=== PATIENT | female | born 1940 | race Caucasian/White ===

== ENCOUNTER 2017-01-21 14:59 | Emergency (ER) | payer MEDICARE, MEDICAID ==
--- NOTE | 2017-01-21 15:23 | ER Document Report ---
ED General - General Mode of Arrival: Ambulatory Information source: Patient TRAVEL OUTSIDE OF THE [place] IN LAST 30 DAYS: No - HPI Onset: Other Quality of pain: No pain Associated symptoms: None Recently seen / treated by doctor: Yes <SHUN BLACKWOOD - Last Filed: 01/21/17 20:09> <VIANCA ROMANO - Last Filed: 01/27/17 22:30> - General Stated Complaint: WEAKNESS Notes: Patient is a 76-year-old female that presents to the emergency department today with complaints of vertigo. 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 Patient is a very poor historian and has tangential speech along with a history of bipolar disorder so history is limited. (SHUN BLACKWOOD) - Related Data Allergies/Adverse Reactions: formaldehyde [Formaldehyde] Allergy (Mild, Verified 09/17/13 12:41) Hives cephalexin monohydrate [From Keflex] Allergy (Unknown, Verified 09/17/13 12:41) Hives haloperidol [Haloperidol] Allergy (Unknown, Verified 09/17/13 12:41) stiff neck albuterol [Albuterol] Allergy (Verified 09/17/13 12:41) trembling betaxolol HCl [From Betoptic S] Allergy (Verified 09/17/13 12:41) interferred with copd meds chlorpromazine HCl [From Thorazine] Allergy (Verified 09/17/13 12:41) jittery indomethacin [From Indocin] Allergy (Verified 09/17/13 12:41) meperidine HCl [From Demerol] Allergy (Verified 09/17/13 12:41) morphine [Morphine] Allergy (Verified 09/17/13 12:41) prednisone [Prednisone] Allergy (Verified 09/17/13 12:41) quinine [Quinine] Allergy (Verified 09/17/13 12:41) stiff neck 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 hydrocarbons Allergy (Uncoded 09/17/13 12:41) intensifies her senses thistle Allergy (Uncoded 09/17/13 12:41) itching Past Medical History - General Information source: Patient, [facility] Records - Social History Smoking Status: Never Smoker Cigarette use (# per day): No Frequency of alcohol use: None Drug Abuse: None Lives with: Family Family History: Reviewed & Not Pertinent - Past Medical History Cardiac Medical History: Reports: Hx Hypertension Pulmonary Medical History: Reports: Hx COPD Endocrine Medical History: Reports: Hx Diabetes Mellitus Type 2, Hx Hypothyroidism Musculoskeltal Medical History: Reports Hx Arthritis Psychiatric Medical History: Reports: Hx Bipolar Disorder, Hx Depression Past Surgical History: Reports: Hx Appendectomy, Hx Cholecystectomy, Hx Herniorrhaphy - UMBILICAL, Hx Hysterectomy - Immunizations Hx Diphtheria, Pertussis, Tetanus Vaccination: Yes Hx Pneumococcal Vaccination: 11/15/08 <SHUN BLACKWOOD - Last Filed: 01/21/17 20:09> Review of Systems - Review of Systems Constitutional: See HPI, Weakness, Other - "vertigo" EENT: No symptoms reported Cardiovascular: See HPI, Other - low blood pressure Respiratory: No symptoms reported Gastrointestinal: No symptoms reported Genitourinary: No symptoms reported Female Genitourinary: No symptoms reported Musculoskeletal: No symptoms reported Skin: No symptoms reported Hematologic/Lymphatic: No symptoms reported Neurological/Psychological: No symptoms reported -: Yes All other systems reviewed and negative <SHUN BLACKWOOD - Last Filed: 01/21/17 20:09> Physical Exam - General General appearance: Appears well, Alert In distress: None - HEENT Head: Normocephalic, Atraumatic Eyes: Normal Conjunctiva: Normal Extraocular movements intact: Yes - Respiratory Respiratory status: No respiratory distress Chest status: Nontender Breath sounds: Normal Chest palpation: Normal - Cardiovascular Rhythm: Regular Heart sounds: Normal auscultation Murmur: No - Abdominal Inspection: Normal Distension: No distension Bowel sounds: Normal Tenderness: Nontender - Extremities General upper extremity: Normal inspection, Normal ROM. No: Edema General lower extremity: Normal inspection, Normal ROM. No: Edema - Neurological Neuro grossly intact: Yes Cognition: Normal Orientation: AAOx4 Speech: Normal - Psychological Associated symptoms: Other - intermittent aggressive behaviors including profanity and throwing objects at staff, no suicidal or homicidal ideation - Skin Skin Temperature: Warm Skin Moisture: Dry Skin Color: Normal <SHUN BLACKWOOD - Last Filed: 01/21/17 20:09> Course - Laboratory Result Diagrams: 01/21/17 17:41 01/21/17 17:41 <SHUN BLACKWOOD - Last Filed: 01/21/17 20:09> - Laboratory Result Diagrams: 01/21/17 17:41 01/21/17 17:41 <VIANCA ROMANO - Last Filed: 01/27/17 22:30> - Re-evaluation Re-evalutation: 01/21/17 21:46 I personally performed the services described in the documentation, reviewed and edited the documentation which was dictated to my scribe in my presence, and it accurately records my words and actions. Patient presents the emergency department with no complaints. Chart states that patient has refused multiple visits physician reading assistant for Dr. Veliz sent her over here for evaluation and states that she asked them for vertigo medication and they said that they're not the kind of Dr. the gives vertigo medication. She is a DNR they were concerned about low pulse ox patient is 98% on 2 L in no acute shortness of breath. She has a history of bipolar and is very difficult to reason with that time she did become agitated frustrated even throw things at the staff. We kept her for a prolonged period of time his laboratory evaluation which was nonacute. No evidence of pneumonia. Hypoxia currently. No acute clinical concerns for pulmonary embolus. Patient is stable is not short of breath be discharged for primary care physician in one to 2 days and discussed reasons for ED return sooner. has mildly elevated BNP but no overt failure on chest x-ray no Rales on examination or peripheral edema. 01/21/17 21:50 01/21/17 21:51 (VIANCA ROMANO) - Vital Signs Vital signs: Temp Pulse Resp BP Pulse Ox 97.9 F 65 25 H 120/77 99 01/21/17 21:32 01/21/17 15:10 01/21/17 22:00 01/21/17 20:45 01/21/17 22:05 - Laboratory Laboratory results interpreted by me: 01/21/17 01/21/17 01/21/17 17:41 17:41 17:41 RBC 3.65 L Hgb 11.2 L Hct 34.1 L Potassium 5.2 H BUN 35 H Creatinine 1.27 H Est GFR ( Amer) 50 L Est GFR (Non-Af Amer) 41 L NT-Pro-B Natriuret Pep 3800 H Discharge <SHUN BLACKWOOD - Last Filed: 01/21/17 20:09> <VIANCA ROMANO - Last Filed: 01/27/17 22:30> - Discharge Clinical Impression: Weakness, Elevated brain natriuretic peptide (BNP) level Condition: Stable Disposition: HOME, SELF-CARE Additional Instructions: Weakness We did not find a definite cause for your weakness. This may require further medical tests. Weakness can be caused by infection, physical exhaustion , rapid weight loss, dehydration, or medicine side effects. Diseases of the muscles, heart, nerves, and blood vessels can make you weak. Sometimes the problem is simply depression or lack of exercise. You should get plenty of rest. Unless the doctor tells you otherwise, it's usually best to add short periods of regular mild exercise. Eat a nutritious diet with multiple small, low-sugar meals. If symptoms continue, additional medical evaluation will be necessary. Be sure to follow up as instructed. If you become very dizzy, nauseated, or feel like you're going to faint, lie down right away. Wait until the symptoms have passed before you get up again. Stand up slowly. Call the doctor or return if you develop chest pain, abdominal pain, severe headache, irregular heartbeat or very fast pulse, confusion, vision problems, fever, muscular pain, or any other new symptom. Prescriptions: Furosemide [Lasix] 40 mg PO DAILY #6 tablet Referrals: AGUSTO NYE MD [Primary Care Provider] - Follow up tomorrow Scribe Documentation - Scribe Written by Vernon:: Vernon Esquivel, 01/21/20172007 acting as scribe for :: Romario <SHUN BLACKWOOD - Last Filed: 01/21/17 20:09>
[2017-01-21 17:36] LABS: APPEARANCE,URINE CLEAR; BILIRUBIN,URINE NEGATIVE (NEGATIVE); GLUCOSE, URINE NEGATIVE (NEGATIVE); KETONES,URINE NEGATIVE (NEGATIVE); LEUKOCYTE ESTERASE,URINE NEGATIVE (NEGATIVE); NITRITE,URINE NEGATIVE (NEGATIVE); PROTEIN,URINE NEGATIVE (NEGATIVE); UROBILINOGEN,URINE NEGATIVE mg/dL (<2.0)
[2017-01-21 18:25] LABS: ABSOLUTE EOSINOPHILS # (AUTO) 0.3 10^3/uL (0.0-0.6); ABSOLUTE LYMPHOCYTES (AUTO) 2.1 10^3/uL (0.5-4.7); ABSOLUTE MONOCYTES (AUTO) 0.6 10^3/uL (0.1-1.4); ABSOLUTE NEUT (AUTO) 4.1 10^3/uL (1.7-8.2); BASOPHILS % (AUTO) 0.7 % (0-2); HEMATOCRIT 34.1 % (36.0-47.0); HEMOGLOBIN 11.2 g/dL (12.0-15.5); HGB HCT DIFFERENCE -0.5; LYMPHOCYTES % (AUTO) 29.4 % (13-45); MEAN CORPUSCULAR HEMOGLOBIN 30.6 pg (27.0-33.4); MEAN CORPUSCULAR HGB CONC 32.7 g/dL (32.0-36.0); MEAN CORPUSCULAR VOLUME 94 fl (80-97); MONOCYTES % (AUTO) 8.5 % (3-13); RED BLOOD COUNT 3.65 10^6/uL (3.72-5.28); RED CELL DISTRIBUTION WIDTH 12.5 % (11.5-14.0); SEGMENTED NEUTROPHILS % (AUTO) 57.4 % (42-78); WHITE BLOOD COUNT 7.2 10^3/uL (4.0-10.5)
[2017-01-21 18:40] LABS: ANION GAP 10 (5-19); BLOOD UREA NITROGEN 35 mg/dL (7-20); CALCIUM 9.3 mg/dL (8.4-10.2); CARBON DIOXIDE 27 mmol/L (22-30); CHLORIDE 103 mmol/L (98-107); CREATININE RESULT 1.27 mg/dL (0.52-1.25); GLUCOSE 80 mg/dL (75-110); POTASSIUM 5.2 mmol/L (3.6-5.0); SODIUM 139.9 mmol/L (137-145)
[2017-01-21 18:56] LABS: TROPONIN I 0.098 ng/mL
--- NOTE | 2017-01-21 20:02 | EKG REPORT ---
SEVERITY:- NORMAL ECG - SINUS RHYTHM : Confirmed by: Aliyah Mendoza 21-Jan-2017 20:01:37
[2017-01-21] MEDS ORDERED: LORAZEPAM INJ 2 MG/1 ML VIAL ONE (20:24)
[2017-01-21 22:03] VITALS: BP 120/77
== END 2017-01-21 22:35 | disposition home or self-care (01) ==
LOC: ER 14:59
DX: R53.1 Weakness (principal); R79.89 Other specified abnormal findings of blood chemistry; I95.9 Hypotension, unspecified; R42 Dizziness and giddiness; F31.9 Bipolar disorder, unspecified; R45.6 Violent behavior; E11.9 Type 2 diabetes mellitus without complications; I10 Essential (primary) hypertension; J44.9 Chronic obstructive pulmonary disease, unspecified; Z88.1 Allergy status to other antibiotic agents; Z88.8 Allergy status to other drugs, medicaments and biological substances; Z88.5 Allergy status to narcotic agent; Z91.048 Other nonmedicinal substance allergy status; Z66 Do not resuscitate
CPT/HCPCS: 93005; 99285; 96374; 36415; 85025; 80048; 81001; 84484; 83880; 71010; 93010; J2060

== ENCOUNTER 2017-02-04 18:16 | Inpatient (IN) | payer MEDICARE, MEDICAID ==
--- NOTE | 2017-02-04 19:04 | ER Document Report ---
ED General - General Time seen by provider: 18:57 Mode of Arrival: Medic Information source: Patient, Emergency Med Personnel TRAVEL OUTSIDE OF THE [place] IN LAST 30 DAYS: No - HPI Onset: Other - see HPI note Associated symptoms: Shortness of breath <JEFFERSON PAREDES - Last Filed: 02/04/17 19:06> <MO CARNEY - Last Filed: 02/05/17 01:03> <MONY CASTANEDA - Last Filed: 02/05/17 07:43> - General Chief Complaint: Shortness Of Breath Stated Complaint: DIFFICULTY BREATHING Notes: Patient is a 76 year old female presenting to the emergency department via EMS for syncope and respiratory distress. EMS reports that patient was found unconscious outside [facility] with a O2 saturation of 66%. Patient was placed on oxygen and is conscious in the room. Patient states that she decided to be "mute" because people have told her that she talks too much and they tell her to "shut up." Patient denies falling and states she is aware. Patient complains that the nurse at the facility switched her glasses; she states the glasses she has are not hers because they are not her frames. Patient uses oxygen at [facility] as needed. Patient's PCP is Dr. Ney. Patient has a history of bipolar disorder, depression, diabetes mellitus, hypertension, arthritis, COPD, and hypothyroidism. (JEFFERSON PAREDES) - Related Data Allergies/Adverse Reactions: formaldehyde [Formaldehyde] Allergy (Mild, Verified 09/17/13 12:41) Hives cephalexin monohydrate [From Keflex] Allergy (Unknown, Verified 09/17/13 12:41) Hives haloperidol [Haloperidol] Allergy (Unknown, Verified 09/17/13 12:41) stiff neck albuterol [Albuterol] Allergy (Verified 09/17/13 12:41) trembling betaxolol HCl [From Betoptic S] Allergy (Verified 09/17/13 12:41) interferred with copd meds chlorpromazine HCl [From Thorazine] Allergy (Verified 09/17/13 12:41) jittery indomethacin [From Indocin] Allergy (Verified 09/17/13 12:41) meperidine HCl [From Demerol] Allergy (Verified 09/17/13 12:41) morphine [Morphine] Allergy (Verified 09/17/13 12:41) prednisone [Prednisone] Allergy (Verified 09/17/13 12:41) quinine [Quinine] Allergy (Verified 09/17/13 12:41) stiff neck 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 hydrocarbons Allergy (Uncoded 09/17/13 12:41) intensifies her senses thistle Allergy (Uncoded 09/17/13 12:41) itching Past Medical History - General Information source: Patient, Emergency Med Personnel, Outside Facility Records - Social History Smoking Status: Smoker,Current Status Unk Family History: None - Past Medical History Cardiac Medical History: Reports: Hx Hypertension Pulmonary Medical History: Reports: Hx COPD Endocrine Medical History: Reports: Hx Diabetes Mellitus Type 2, Hx Hypothyroidism Musculoskeltal Medical History: Reports Hx Arthritis Psychiatric Medical History: Reports: Hx Bipolar Disorder, Hx Depression Past Surgical History: Reports: Hx Appendectomy, Hx Cholecystectomy, Hx Herniorrhaphy - UMBILICAL, Hx Hysterectomy - Immunizations Hx Diphtheria, Pertussis, Tetanus Vaccination: Yes Hx Pneumococcal Vaccination: 11/15/08 <JEFFERSON PAREDES - Last Filed: 02/04/17 19:06> Review of Systems - Review of Systems Constitutional: No symptoms reported EENT: No symptoms reported Cardiovascular: No symptoms reported Respiratory: See HPI Gastrointestinal: No symptoms reported Genitourinary: No symptoms reported Female Genitourinary: No symptoms reported Musculoskeletal: No symptoms reported Skin: No symptoms reported Hematologic/Lymphatic: No symptoms reported Neurological/Psychological: See HPI -: Yes All other systems reviewed and negative <JEFFERSON PAREDES - Last Filed: 02/04/17 19:06> Physical Exam <JEFFERSON PAREDES - Last Filed: 02/04/17 19:06> <MO CARNEY F - Last Filed: 02/05/17 01:03> <MONY CASTANEDA - Last Filed: 02/05/17 07:43> - Vital signs Vitals: Temp Resp Pulse Ox 98.6 F 12 96 02/04/17 18:43 02/04/17 18:43 02/04/17 18:43 - Notes Notes: GENERAL: Well-appearing, well-nourished and in no acute distress. Appears oriented but refuses to answer some questions. HEAD: Atraumatic, normocephalic EYES: Pupils equal round and reactive to light, extraocular movements intact, sclera anicteric, no conjunctival injection or discharge ENT: Nares patent, oropharynx clear without exudates. Moist mucous membranes. NECK: Normal range of motion, supple, no carotid bruits LUNGS: Decreased breath sounds bilaterally with wheezes. HEART: Normal S1S2, Regular rate and rhythm without murmurs, Equal peripheral pulses ABDOMEN: Soft, non-tender, No appreciable mass EXTREMITIES: Normal range of motion, no calf tenderness, Negative Homans, no edema NEUROLOGICAL: GCS 15, Cranial nerves II-XII intact. Normal speech without aphasia, No Pronator Drift, 5/5 RUE strength, 5/5 RLE strength, 5/5 LUE strength , 5/5 LLE strength, No cerebellar abnormalities including normal finger-nose testing PSYCH: Agitated, normal affect, believes people are being nitpicky towards, some paranoia. SKIN: Warm, Dry, no cyanosis, Cap refill < 2 sec (JEFFERSON PAREDES) Course <JEFFERSON PAREDES - Last Filed: 02/04/17 19:06> - Laboratory Result Diagrams: 02/04/17 18:45 02/04/17 20:20 - EKG Interpretation by Me EKG shows normal: Sinus rhythm, [place], Intervals, QRS Complexes, ST-T Waves Rate: Normal - 83 - Consults Dr. Perry Time consulted: 00:55 <MO CARNEY - Last Filed: 02/05/17 01:03> - Laboratory Result Diagrams: 02/04/17 18:45 02/04/17 20:20 <MONY CASTANEDA - Last Filed: 02/05/17 07:43> - Re-evaluation Re-evalutation: 02/05/17 01:58 Patient's lung cross are still very tight wheezing. Patient was checked out to me by Dr. Carney pending repeat troponin. Repeat troponin is back. It is not much change from the previous one. I did review her previous records and previous visits. Her troponins actually in line with where it typically is on her previous visits. She has no chest pain. I do not think it's cardiac related. She may have some strain from the previous hypoxemia but I do not think she is having an [facility]. I'm awaiting to hear back from the hospitalist. 02/05/17 04:47 I again reevaluated the patient. Her lung cross are still wheezing and tight. She still requires omental oxygen. On 3 L she is partially 9394%. Without oxygen her saturations quickly dipped into the 80s. She is easily arousable. She is her usual awake and agitated self. We are still waiting to hear back from the hospitalist to get the patient admitted. 02/05/17 07:[address] Alexander, hospitalist, who agrees to admit the patient. Patient has remained stable on supplemental oxygen. Dictation of this chart was performed using voice recognition software; therefore, there may be some unintended grammatical errors. 02/05/17 07:42 (MONY CASTANEDA) - Vital Signs Vital signs: Temp Pulse Resp BP Pulse Ox 98.6 F 13 139/55 H 94 02/04/17 18:43 02/05/17 04:01 02/05/17 04:00 02/05/17 04:01 - Laboratory Laboratory results interpreted by me: 02/04/17 02/04/17 02/04/17 18:45 19:50 20:20 WBC 12.5 H Absolute Neutrophils 9.3 H Carbonic Acid ABG pCO2 ABG pO2 ABG HCO3 ABG Total CO2 ABG O2 Saturation Chloride 92 L Carbon Dioxide 37 H BUN 30 H Est GFR (Non-Af Amer) 52 L Glucose 145 H NT-Pro-B Natriuret Pep Ur Leukocyte Esterase TRACE H 02/04/17 02/04/17 20:20 20:50 WBC Absolute Neutrophils Carbonic Acid 2.15 H ABG pCO2 71.5 H* ABG pO2 41.5 L ABG HCO3 38.9 H ABG Total CO2 41.0 H ABG O2 Saturation 72.5 L Chloride Carbon Dioxide BUN Est GFR (Non-Af Amer) Glucose NT-Pro-B Natriuret Pep 4010 H Ur Leukocyte Esterase - EKG Interpretation by Me Additional EKG results interpreted by me: 02/05/17 03:24 EKG is reviewed and interpreted by me. EKG shows normal sinus rhythm with rate of [address] segment elevation or depression. No ischemic T wave inversions. ND interval, QRS duration, QTC intervals are within normal range. Old EKG for comparison is from 02/04/2017. (MONY CASTANEDA) - Consults Dr. Perry Reason for consultation: 02/05/17 01:[address] Perry regarding admission. Patient has hypoxia with some chronic respiratory issues. Her CT scan did not show pulmonary embolus. Her prior troponin was 0.098 and tonight 0.12. She denies any chest pain but we will repeat another troponin and decide about admission at that point here versus transfer based on her continued status and repeat troponin. She gets tremulous with albuterol so she will be receiving Xopenex. (MO CARNEY) Discharge <JEFFERSON PAREDES - Last Filed: 02/04/17 19:06> <MO CARNEY - Last Filed: 02/05/17 01:03> - Discharge Admitting Provider: Hospitalist Unit Admitted: Telemetry <MONY CASTANEDA - Last Filed: 02/05/17 07:43> - Discharge Clinical Impression: Hypoxia, Obstructive chronic bronchitis with exacerbation Syncope Qualifiers: Syncope type: unspecified Qualified Code(s): R55 - Syncope and collapse Condition: Fair Disposition: ADMITTED INPATIENT Referrals: AGUSTO NEY MD [Primary Care Provider] - Follow up as needed Scribe Attestation: 02/05/17 01:04 I personally performed the services described in the documentation, reviewed and edited the documentation which was dictated to the scribe in my presence, and it accurately records my words and actions. (MO CARNEY) Scribe Documentation - Scribe Written by Scrpiyush:: Jefferson Paredes 02/04/17 19:10 acting as scribe for :: Angelika <JEFFERSON PAREDES - Last Filed: 02/04/17 19:06>
[2017-02-04 19:32] LABS: ABSOLUTE BASOPHILS # (AUTO) 0.1 10^3/uL (0.0-0.2); ABSOLUTE EOSINOPHILS # (AUTO) 0.3 10^3/uL (0.0-0.6); ABSOLUTE MONOCYTES (AUTO) 0.7 10^3/uL (0.1-1.4); ABSOLUTE NEUT (AUTO) 9.3 10^3/uL (1.7-8.2); BASOPHILS % (AUTO) 0.6 % (0-2); EOSINOPHILS % (AUTO) 2.4 % (0-6); HEMATOCRIT 42.1 % (36.0-47.0); HEMOGLOBIN 14.1 g/dL (12.0-15.5); HGB HCT DIFFERENCE 0.2; LYMPHOCYTES % (AUTO) 16.4 % (13-45); MEAN CORPUSCULAR HEMOGLOBIN 30.7 pg (27.0-33.4); MEAN CORPUSCULAR HGB CONC 33.4 g/dL (32.0-36.0); MEAN CORPUSCULAR VOLUME 92 fl (80-97); MONOCYTES % (AUTO) 5.7 % (3-13); RED BLOOD COUNT 4.59 10^6/uL (3.72-5.28); RED CELL DISTRIBUTION WIDTH 13.2 % (11.5-14.0); SEGMENTED NEUTROPHILS % (AUTO) 74.9 % (42-78); WHITE BLOOD COUNT 12.5 10^3/uL (4.0-10.5)
[2017-02-04 20:25] LABS: APPEARANCE,URINE CLEAR; BILIRUBIN,URINE NEGATIVE (NEGATIVE); GLUCOSE, URINE NEGATIVE (NEGATIVE); KETONES,URINE NEGATIVE (NEGATIVE); LEUKOCYTE ESTERASE,URINE TRACE (NEGATIVE); NITRITE,URINE NEGATIVE (NEGATIVE); PROTEIN,URINE NEGATIVE (NEGATIVE); URINE SPECIFIC GRAVITY 1.006; UROBILINOGEN,URINE NEGATIVE mg/dL (<2.0)
[2017-02-04 20:51] LABS: ALANINE AMINOTRANSFERASE 36 U/L (9-52); ALBUMIN 4.3 g/dL (3.5-5.0); ALKALINE PHOSPHATASE 88 U/L (38-126); ANION GAP 12 (5-19); ASPARTATE AMINO TRANSFERASE 24 U/L (14-36); BILIRUBIN,DIRECT 0.3 mg/dL (0.0-0.4); BILIRUBIN,TOTAL 0.6 mg/dL (0.2-1.3); BLOOD UREA NITROGEN 30 mg/dL (7-20); CALCIUM 9.9 mg/dL (8.4-10.2); CARBON DIOXIDE 37 mmol/L (22-30); CHLORIDE 92 mmol/L (98-107); CREATININE RESULT 1.03 mg/dL (0.52-1.25); GLUCOSE 145 mg/dL (75-110); POTASSIUM 4.6 mmol/L (3.6-5.0); SODIUM 141.4 mmol/L (137-145); TOTAL PROTEIN 7.3 g/dL (6.3-8.2)
[2017-02-04 21:05] LABS: TROPONIN I 0.123 ng/mL
[2017-02-04 21:24] LABS: ARTERIAL BLOOD BASE EXCESS 10.3 mmol/L; ARTERIAL BLOOD O2 SATURATION 72.5 % (94-98)
[2017-02-05] MEDS ORDERED: LEVALBUTEROL HCL NEB 1.25 MG/3 ML AMPUL NEB ONE ×2 (00:41→01:57)
[2017-02-05] MEDS ORDERED: METHYLPREDNISOLONE INJ 125 MG/2 ML SDV IV ONE (01:58)
[2017-02-05] MEDS: MAGNESIUM SULFATE/D5W 100 ML IV SCH ×2 (02:45→03:47)
--- NOTE | 2017-02-05 07:07 | EKG REPORT ---
SEVERITY:- NORMAL ECG - SINUS RHYTHM : Confirmed by: Galen Mendoza MD 05-Feb-2017 07:07:26
--- NOTE | 2017-02-05 07:13 | EKG REPORT ---
SEVERITY:- NORMAL ECG - SINUS RHYTHM POOR R PROGRESSION ANTERIOR PRECORDIAL LEADS. : Confirmed by: Galen Mendoza MD 05-Feb-2017 07:13:22
[2017-02-05 11:07] LABS: ABSOLUTE LYMPHOCYTES (AUTO) 0.4 10^3/uL (0.5-4.7); ABSOLUTE NEUT (AUTO) 5.8 10^3/uL (1.7-8.2); BASOPHILS % (AUTO) 0.3 % (0-2); EOSINOPHILS % (AUTO) 0.1 % (0-6); HEMATOCRIT 36.8 % (36.0-47.0); HEMOGLOBIN 12.2 g/dL (12.0-15.5); HGB HCT DIFFERENCE -0.2; LYMPHOCYTES % (AUTO) 6.5 % (13-45); MEAN CORPUSCULAR HEMOGLOBIN 30.8 pg (27.0-33.4); MEAN CORPUSCULAR HGB CONC 33.1 g/dL (32.0-36.0); MEAN CORPUSCULAR VOLUME 93 fl (80-97); MONOCYTES % (AUTO) 0.5 % (3-13); RED BLOOD COUNT 3.96 10^6/uL (3.72-5.28); RED CELL DISTRIBUTION WIDTH 12.7 % (11.5-14.0); SEGMENTED NEUTROPHILS % (AUTO) 92.6 % (42-78); WHITE BLOOD COUNT 6.3 10^3/uL (4.0-10.5)
[2017-02-05 11:20] LABS: VENOUS BLOOD BASE EXCESS 11.3 mmol/L; VENOUS BLOOD HCO3 39.4 mmol/L (20-32); VENOUS BLOOD PH 7.37 (7.30-7.42)
[2017-02-05 11:26] LABS: ANION GAP 16 (5-19); BLOOD UREA NITROGEN 26 mg/dL (7-20); CALCIUM 9.5 mg/dL (8.4-10.2); CARBON DIOXIDE 34 mmol/L (22-30); CHLORIDE 93 mmol/L (98-107); CREATININE RESULT 0.94 mg/dL (0.52-1.25); GLUCOSE 196 mg/dL (75-110); MAGNESIUM 2.7 mg/dL (1.6-2.3); POTASSIUM 5.1 mmol/L (3.6-5.0); SODIUM 143.1 mmol/L (137-145)
[2017-02-05 11:27] LABS: VENOUS BLOOD PCO2 69.1 mmHg (35-63)
[2017-02-05] MEDS ORDERED: MECLIZINE HCL 25 MG TABLET PO PRN (11:31)
[2017-02-05] MEDS ORDERED: VITAMIN D3 PO SCH (12:00)
[2017-02-05] MEDS ORDERED: CALCIUM CARBONATE PO SCH (12:00)
[2017-02-05] MEDS ORDERED: LEVOTHYROXINE SODIUM 0.05 MG TABLET PO ONE (13:00)
[2017-02-05] MEDS ORDERED: ASPIRIN 81 MG TABLET, ENT COATED PO ONE (13:00)
[2017-02-05] MEDS ORDERED: CARVEDILOL 6.25 MG TABLET PO ONE (13:00)
[2017-02-05] MEDS ORDERED: LISINOPRIL 10 MG TABLET PO ONE (13:00)
[2017-02-05] MEDS ORDERED: CETIRIZINE 10 MG TABLET PO ONE (13:00)
[2017-02-05] MEDS ORDERED: PRENATAL VITAMIN W-O CA NO5/FE FUMARATE/FA CAPSULE PO ONE (13:00)
[2017-02-05] MEDS ORDERED: OLANZAPINE INJ/PF 10 MG SDV IM ONE (13:30)
[2017-02-05] MEDS: ALPRAZOLAM 0.25 MG TABLET PO PRN (16:06)
[2017-02-05] MEDS ORDERED: LEVALBUTEROL HCL NEB 1.25 MG/3 ML AMPUL NEB PRN (16:58)
--- NOTE | 2017-02-05 17:04 | PDOC H&P ---
History of Present Illness Admission Date/PCP: 02/05/17 09:46 AGUSTO NYE MD Patient complains of: Shortness of breath History of Present Illness: Ms. Escobar is a 76 year old female presenting to the emergency department via EMS for syncope and respiratory distress. EMS reports that patient was found unconscious outside [facility] with a O2 saturation of 66%. Patient was placed on oxygen and is conscious in the room. Patient stated that she decided to be "mute" because people have told her that she talks too much and they tell her to "shut up." Patient denies falling and states she is aware. Patient complains that the nurse at the facility switched her glasses; she states the glasses she has are not hers because they are not her frames. Patient uses oxygen at [facility] as needed. Patient's PCP is Dr. Nye. Patient has a history of hypercapnic respiratory failure, bipolar disorder, depression, diabetes mellitus, hypertension, arthritis, COPD, and hypothyroidism. Patient was referred to the hospitalist for admission and management. Upon my evaluation the patient was found to be obtunded. Given the elevation in PCO2 stat labs and blood gas was obtained. Upon reevaluation the patient was found to be delusional and history was unable to be fully obtained. This appears to be the patient's baseline. Selected Entries 02/05/17 05:59 Respiratory 26 H Rate 02/04/17 02/04/17 02/04/17 18:45 20:20 20:50 WBC 12.5 H ABG pCO2 71.5 H* ABG pO2 41.5 L Carbon Dioxide 37 H Past Medical History Cardiac Medical History: Reports: Hypertension Pulmonary Medical History: Reports: Chronic Obstructive Pulmonary Disease (COPD) Endocrine Medical History: Reports: Diabetes Mellitus Type 2, Hypothyroidism Musculoskeltal Medical History: Reports: Arthritis Psychiatric Medical History: Reports: Bipolar Disorder - With psychosis, Depression Hematology: Reports: Heparin Induced Thrombocytopenia Past Surgical History Past Surgical History: Reports: Appendectomy, Cholecystectomy, Herniorrhaphy - UMBILICAL, Hysterectomy Social History Information Source: Patient Occupation: Retired lives at the [facility] in [place] Lives with: Other - Assisted living Smoking Status: Current Every Day Smoker Cigarettes Packs Per Day: 0.3 Number of Years Smokin Frequency of Alcohol Use: None Hx Recreational Drug Use: No Hx Prescription Drug Abuse: No - Advance Directive Resuscitation Status: Do Not Resuscitate - Portable DO NOT RESUSCITATE DO NOT INTUBATE Surrogate healthcare decision maker:: Her son Kapil Kitchen Family History Family History: None Parental Family History Reviewed: Yes Children Family History Reviewed: Yes Sibling(s) Family History Reviewed.: Yes Medication/Allergy Home Medications: Acetaminophen [Tylenol] 650 mg PO DAILYP PRN 02/05/17 Alprazolam [Xanax 0.25 mg Tablet] 0.25 mg PO Q8HP PRN 02/05/17 Amlodipine Besylate [Norvasc 10 mg Tablet] 10 mg PO DAILY 02/05/17 Aspirin [Ecotrin 81 mg EC Tablet] 81 mg PO DAILY 02/05/17 Calcium Carbonate/Vitamin D3 [Calcium 600-Vit D3 800 Tab] 1 tab PO MEALS Carvedilol [Coreg 6.25 mg Tablet] 6.25 mg PO Q12 02/05/17 Cetirizine HCl [Zyrtec 10 mg Tablet] 10 mg PO DAILY 02/05/17 Citalopram Hydrobromide [Celexa 20 mg Tablet] 20 mg PO QHS 02/05/17 Fluticasone/Salmeterol [Advair 250-50 Diskus 28 dose] 1 puff IH BID 02/05/17 Furosemide [Lasix] 40 mg PO BID 02/05/17 Gabapentin [Neurontin 100 mg Capsule] 100 mg PO BID 02/05/17 Guaifenesin [Tussin] 10 ml PO Q4HP PRN 02/05/17 Levothyroxine Sodium [Synthroid 0.05 mg Tablet] 0.05 mg PO QAM 02/05/17 Lisinopril [Zestril] 20 mg PO DAILY 02/05/17 Meclizine HCl [Antivert 25 mg Tablet] 25 mg PO TIDP PRN 02/05/17 Multivits-Min/Iron/FA/Lutein [Centrum Silver Women Tablet] 1 tab PO DAILY Quetiapine Fumarate [Seroquel] 25 mg PO QHS 02/05/17 Umeclidinium [place] [Incruse Ellipta] 1 puff IH DAILY 02/05/17 Allergies/Adverse Reactions: formaldehyde [Formaldehyde] Allergy (Mild, Verified 09/17/13 12:41) Hives cephalexin monohydrate [From Keflex] Allergy (Unknown, Verified 09/17/13 12:41) Hives haloperidol [Haloperidol] Allergy (Unknown, Verified 09/17/13 12:41) stiff neck albuterol [Albuterol] Allergy (Verified 09/17/13 12:41) trembling betaxolol HCl [From Betoptic S] Allergy (Verified 09/17/13 12:41) interferred with copd meds chlorpromazine HCl [From Thorazine] Allergy (Verified 09/17/13 12:41) jittery indomethacin [From Indocin] Allergy (Verified 09/17/13 12:41) meperidine HCl [From Demerol] Allergy (Verified 09/17/13 12:41) morphine [Morphine] Allergy (Verified 09/17/13 12:41) prednisone [Prednisone] Allergy (Verified 09/17/13 12:41) quinine [Quinine] Allergy (Verified 09/17/13 12:41) stiff neck 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 ABSENT: scleral icterus Ear exam: PRESENT: normal external ear exam Mouth exam: PRESENT: moist, tongue midline Neck exam: ABSENT: carotid bruit, JVD, lymphadenopathy, thyromegaly Respiratory exam: PRESENT: decreased breath sounds, symmetrical, unlabored. ABSENT: rales, rhonchi, tachypnea, wheezes Cardiovascular exam: PRESENT: RRR. ABSENT: diastolic murmur, rubs, systolic murmur Pulses: PRESENT: normal dorsalis pedis pul Vascular exam: PRESENT: normal capillary refill GI/Abdominal exam: PRESENT: normal bowel sounds, soft. ABSENT: distended, guarding, mass, organolmegaly, rebound, tenderness Rectal exam: PRESENT: deferred Extremities exam: PRESENT: full ROM. ABSENT: calf tenderness, clubbing, pedal edema Neurological exam: PRESENT: alert, awake, oriented to person, oriented to place , oriented to time, oriented to situation, CN II-XII grossly intact. ABSENT: motor sensory deficit Psychiatric exam: PRESENT: agitated, unusual affect. ABSENT: homicidal ideation , suicidal ideation Focused psych exam: PRESENT: delusional, paranoid, restlessness Skin exam: PRESENT: dry, intact, warm. ABSENT: cyanosis, rash Results Laboratory Results: 02/05/17 10:50 02/05/17 10:50 02/05/17 02/05/17 02/05/17 10:50 10:50 10:50 WBC 6.3 RBC 3.96 Hgb 12.2 Hct 36.8 MCV 93 MCH 30.8 MCHC 33.1 RDW 12.7 Plt Count 191 Seg Neutrophils % 92.6 H Lymphocytes % 6.5 L Monocytes % 0.5 L Eosinophils % 0.1 Basophils % 0.3 Absolute Neutrophils 5.8 Absolute Lymphocytes 0.4 L Absolute Monocytes 0.0 L Absolute Eosinophils 0.0 Absolute Basophils 0.0 VBG pH 7.37 VBG pCO2 69.1 H* VBG HCO3 39.4 H VBG Base Excess 11.3 Sodium 143.1 Potassium 5.1 H Chloride 93 L Carbon Dioxide 34 H Anion Gap 16 BUN 26 H Creatinine 0.94 Est GFR ( Amer) > 60 Est GFR (Non-Af Amer) 58 L Glucose 196 H Calcium 9.5 Magnesium 2.7 H 02/05/17 10:50 Troponin I 0.111 Impressions: Chest X-Ray 02/04/17 19:06 IMPRESSION: No acute finding. Chest/Abdomen CTA 02/04/17 21:11 IMPRESSION: NO PULMONARY EMBOLI. Scattered subsegmental atelectasis. Left ventricular hypertrophy. Assessment & Plan - Diagnosis (1) Acute on chronic respiratory failure Qualifiers: Respiratory failure complication: hypoxia and hypercapnia Qualified Code(s): J96.21 - Acute and chronic respiratory failure with hypoxia; J96.22 - Acute and chronic respiratory failure with hypercapnia Is this a current diagnosis for this admission?: YesPlan: Will repeat VBG as well as start patient on BiPAP in an effort to pull off PCO2. Upon review of patient's previous admissions this hypercapnia is chronic. (2) COPD exacerbation Is this a current diagnosis for this admission?: YesPlan: Will add when necessary nebs and continue the patient's home medications. No wheezing is noted at this time will defer steroids. (3) Syncope Qualifiers: Syncope type: unspecified Qualified Code(s): R55 - Syncope and collapse Is this a current diagnosis for this admission?: YesPlan: Most likely secondary to #1 (4) Psychosis Qualifiers: Psychosis type: delusional disorder Qualified Code(s): F22 - Delusional disorders Is this a current diagnosis for this admission?: YesPlan: The patient does have underlying chronic diagnosis of bipolar disorder and schizo effective. The patient's behavior this admission is quite similar to previous admissions. This does not appear to be far from baseline. Will resume home medications (5) Elevated troponin Is this a current diagnosis for this admission?: YesPlan: It appears the patient has persistent troponin leak most likely due to to debate. It is on a downward trend. The patient had no acute EKG changes and denies any chest pain. 12/20/11 11/16/14 11/16/14 16:02 01:32 09:55 Troponin I 0.073 0.052 0.554 11/16/14 11/16/14 11/17/14 14:48 23:53 05:50 Troponin I 0.593 0.305 0.245 01/21/17 02/04/17 02/05/17 17:41 20:20 01:02 Troponin I 0.098 0.123 0.131 02/05/17 10:50 Troponin I 0.111 - Time Time Spent: 50 to 70 Minutes Medications reviewed and adjusted accordingly: Yes Anticipated discharge: Other Within: within 48 hours Disposition: The patient is a DO NOT RESUSCITATE DO NOT INTUBATE. Pending patient's symptomatology and diagnostic findings will reevaluate as needed.
[2017-02-05] MEDS: CALCIUM CARBONATE 250 MG/VITAMIN D3 125 UNIT TABLET PO SCH (17:48)
[2017-02-05] MEDS: GABAPENTIN 100 MG CAPSULE PO SCH (17:48)
[2017-02-05] MEDS: FUROSEMIDE 40 MG TABLET PO SCH (17:48)
[2017-02-05] MEDS: QUETIAPINE FUMARATE 25 MG TABLET PO SCH (21:06)
[2017-02-05] MEDS: CITALOPRAM HYDROBROMIDE 20 MG TABLET PO SCH (21:10)
[2017-02-05] MEDS: CARVEDILOL 6.25 MG TABLET PO SCH (21:12)
[2017-02-05] MEDS: FLUTICASONE/SALMETEROL DISKUS 250-50 MCG/DOSE IH SCH (21:12)
[2017-02-06] MEDS: GABAPENTIN 100 MG CAPSULE PO SCH ×2 (05:12→17:23)
[2017-02-06 06:32] LABS: VENOUS BLOOD BASE EXCESS 12.5 mmol/L; VENOUS BLOOD HCO3 39.9 mmol/L (20-32); VENOUS BLOOD PH 7.4 (7.30-7.42)
[2017-02-06 06:36] LABS: HEMOGLOBIN 11.8 g/dL (12.0-15.5); HGB HCT DIFFERENCE -0.6; MEAN CORPUSCULAR HEMOGLOBIN 30.7 pg (27.0-33.4); MEAN CORPUSCULAR HGB CONC 32.8 g/dL (32.0-36.0); MEAN CORPUSCULAR VOLUME 94 fl (80-97); RED BLOOD COUNT 3.85 10^6/uL (3.72-5.28); RED CELL DISTRIBUTION WIDTH 12.9 % (11.5-14.0); WHITE BLOOD COUNT 10.5 10^3/uL (4.0-10.5)
[2017-02-06 06:57] LABS: ANION GAP 12 (5-19); BLOOD UREA NITROGEN 35 mg/dL (7-20); CARBON DIOXIDE 36 mmol/L (22-30); CHLORIDE 95 mmol/L (98-107); CREATININE RESULT 1.12 mg/dL (0.52-1.25); GLUCOSE 98 mg/dL (75-110); POTASSIUM 4.4 mmol/L (3.6-5.0)
[2017-02-06 07:07] LABS: VENOUS BLOOD PCO2 65.6 mmHg (35-63)
[2017-02-06] MEDS: CALCIUM CARBONATE 250 MG/VITAMIN D3 125 UNIT TABLET PO SCH ×3 (08:06→17:23)
[2017-02-06] MEDS: LEVOTHYROXINE SODIUM 0.05 MG TABLET PO SCH (08:07)
[2017-02-06] MEDS: PRENATAL VITAMIN W-O CA NO5/FE FUMARATE/FA CAPSULE PO SCH (09:21)
[2017-02-06] MEDS: ASPIRIN 81 MG TABLET, ENT COATED PO SCH (09:21)
[2017-02-06] MEDS: CARVEDILOL 6.25 MG TABLET PO SCH ×2 (09:21→21:58)
[2017-02-06] MEDS: AMLODIPINE BESYLATE 10 MG TABLET PO SCH (09:22)
[2017-02-06] MEDS: CETIRIZINE 10 MG TABLET PO SCH (09:22)
[2017-02-06] MEDS: FUROSEMIDE 40 MG TABLET PO SCH ×2 (09:22→17:23)
[2017-02-06] MEDS: LISINOPRIL 10 MG TABLET PO SCH (09:22)
[2017-02-06] MEDS: FLUTICASONE/SALMETEROL DISKUS 250-50 MCG/DOSE IH SCH ×2 (09:23→22:00)
[2017-02-06] MEDS ORDERED: (PENDING PHARMACY ID) (Multivits-Min/Iron/Fa/Lutein [Centrum Silver Women Tablet] 1 TAB) PO SCH (10:00)
[2017-02-06] MEDS ORDERED: OLANZAPINE INJ/PF 10 MG SDV IM ONE (10:00)
[2017-02-06] MEDS ORDERED: (PENDING PHARMACY ID) (Lisinopril [Zestril] 20 MG) PO SCH (10:00)
--- NOTE | 2017-02-06 10:16 | EKG REPORT ---
SEVERITY:- BORDERLINE ECG - SINUS RHYTHM NONSPECIFIC LATERAL ST-T CHANGES : Confirmed by: Galen Mendoza MD 06-Feb-2017 10:16:11
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
[2017-02-06] MEDS: METHYLPREDNISOLONE INJ 40 MG/1 ML SDV IV SCH ×2 (13:07→21:59)
[2017-02-06] MEDS: ALPRAZOLAM 0.25 MG TABLET PO PRN (13:37)
[2017-02-06] MEDS: QUETIAPINE FUMARATE 25 MG TABLET PO SCH (21:57)
[2017-02-06] MEDS: CITALOPRAM HYDROBROMIDE 20 MG TABLET PO SCH (21:57)
[2017-02-06] MEDS: MONTELUKAST SODIUM 10 MG TABLET PO SCH (21:58)
[2017-02-07] MEDS: GABAPENTIN 100 MG CAPSULE PO SCH ×2 (06:44→18:19)
[2017-02-07] MEDS: METHYLPREDNISOLONE INJ 40 MG/1 ML SDV IV SCH (06:44)
[2017-02-07 08:34] LABS: BLOOD UREA NITROGEN 38 mg/dL (7-20); CALCIUM 9.8 mg/dL (8.4-10.2); CHLORIDE 93 mmol/L (98-107); CREATININE RESULT 1.14 mg/dL (0.52-1.25); GLUCOSE 93 mg/dL (75-110); POTASSIUM 4.4 mmol/L (3.6-5.0); SODIUM 146.3 mmol/L (137-145)
[2017-02-07 08:49] LABS: ANION GAP 10 (5-19)
[2017-02-07 09:07] LABS: CARBON DIOXIDE 43 mmol/L (22-30)
[2017-02-07] MEDS: LISINOPRIL 10 MG TABLET PO SCH (09:37)
[2017-02-07] MEDS: CARVEDILOL 6.25 MG TABLET PO SCH ×2 (09:38→22:11)
[2017-02-07] MEDS: AMLODIPINE BESYLATE 10 MG TABLET PO SCH (09:38)
[2017-02-07] MEDS: LEVOTHYROXINE SODIUM 0.05 MG TABLET PO SCH (09:38)
[2017-02-07] MEDS: CETIRIZINE 10 MG TABLET PO SCH (09:38)
[2017-02-07] MEDS: FUROSEMIDE 40 MG TABLET PO SCH (09:39)
[2017-02-07] MEDS: CALCIUM CARBONATE 250 MG/VITAMIN D3 125 UNIT TABLET PO SCH ×3 (09:39→18:19)
[2017-02-07] MEDS: ASPIRIN 81 MG TABLET, ENT COATED PO SCH (09:39)
[2017-02-07] MEDS: PRENATAL VITAMIN W-O CA NO5/FE FUMARATE/FA CAPSULE PO SCH (09:39)
[2017-02-07] MEDS: ALPRAZOLAM 0.25 MG TABLET PO PRN (09:40)
[2017-02-07] MEDS: FLUTICASONE/SALMETEROL DISKUS 250-50 MCG/DOSE IH SCH ×2 (09:40→22:12)
[2017-02-07] MEDS: ACETAZOLAMIDE 250 MG TABLET PO SCH (09:40)
[2017-02-07] MEDS ORDERED: ZIPRASIDONE MESYLATE INJ/PF 20 MG SDV IM ONE (11:30)
[2017-02-07] MEDS: METHYLPREDNISOLONE 4 MG TABLET PO SCH ×3 (13:33→22:51)
[2017-02-07] MEDS ORDERED: ZIPRASIDONE HCL 20 MG CAPSULE PO SCH (19:15)
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
[2017-02-07] MEDS ORDERED: ZIPRASIDONE HCL 20 MG CAPSULE PO ONE ×2 (19:45→22:44)
--- NOTE | 2017-02-07 21:32 | PDOC CONSULTATION ---
Consultation Consult Date: 02/07/17 Attending physician:: ANNA CALVILLO Consult reason:: abnormal troponin History of Present Illness Admission Date/PCP: 02/05/17 09:46 AGUSTO NYE MD Patient complains of: Dyspnea History of Present Illness: Ms. Escobar is a 76 year old female admitted via emergency department for syncope and respiratory distress. EMS reports that patient was found unconscious outside [facility] with a O2 saturation of 66%. Patient was placed on oxygen and is conscious in the room. Patient stated that she decided to be "mute" because people have told her that she talks too much and they tell her to "shut up." Patient denies falling and states she is aware. Patient complains that the nurse at the facility switched her glasses; she states the glasses she has are not hers because they are not her frames. Patient uses oxygen at [facility] as needed. Patient's PCP is Dr. Nye. Patient has a history of hypercapnic respiratory failure, bipolar disorder, depression, diabetes mellitus, hypertension, arthritis, COPD, and hypothyroidism. Patient was referred to the hospitalist for admission and management. My evaluation today the patient was found to be confused. On evaluation the patient was found to be delusional and history was unable to be fully obtained. On direct questioning patient however denied any chest pain, shortness of breath or any prior heart problems, sustained palpitations, syncope or near syncope. Patient was actually noted to be somewhat short of breath at rest with ongoing wheezing. 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 Denies: Anemia, Sickle Cell Disease Past Surgical History Past Surgical History: Reports: Appendectomy, Cholecystectomy, Herniorrhaphy - UMBILICAL, Hysterectomy Denies: Amputation Social History Information Source: [facility] Records Lives with: Other - Assisted living Smoking Status: Current Every Day Smoker Cigarettes Packs Per Day: 0.3 Number of Years Smokin Frequency of Alcohol Use: None Hx Recreational Drug Use: No Drugs: None Hx Prescription Drug Abuse: No - Advance Directive Resuscitation Status: Do Not Resuscitate - Portable DO NOT RESUSCITATE DO NOT INTUBATE Family History Family History: None Parental Family History Reviewed: No - can not use. Children Family History Reviewed: No Sibling(s) Family History Reviewed.: No Medication/Allergy Home Medications: Acetaminophen [Tylenol] 650 mg PO DAILYP PRN 02/05/17 Alprazolam [Xanax 0.25 mg Tablet] 0.25 mg PO Q8HP PRN 02/05/17 Amlodipine Besylate [Norvasc 10 mg Tablet] 10 mg PO DAILY 02/05/17 Aspirin [Ecotrin 81 mg EC Tablet] 81 mg PO DAILY 02/05/17 Calcium Carbonate/Vitamin D3 [Calcium 600-Vit D3 800 Tab] 1 tab PO MEALS Carvedilol [Coreg 6.25 mg Tablet] 6.25 mg PO Q12 02/05/17 Cetirizine HCl [Zyrtec 10 mg Tablet] 10 mg PO DAILY 02/05/17 Citalopram Hydrobromide [Celexa 20 mg Tablet] 20 mg PO QHS 02/05/17 Fluticasone/Salmeterol [Advair 250-50 Diskus 28 dose] 1 puff IH BID 02/05/17 Furosemide [Lasix] 40 mg PO BID 02/05/17 Gabapentin [Neurontin 100 mg Capsule] 100 mg PO BID 02/05/17 Guaifenesin [Tussin] 10 ml PO Q4HP PRN 02/05/17 Levothyroxine Sodium [Synthroid 0.05 mg Tablet] 0.05 mg PO QAM 02/05/17 Lisinopril [Zestril] 20 mg PO DAILY 02/05/17 Meclizine HCl [Antivert 25 mg Tablet] 25 mg PO TIDP PRN 02/05/17 Multivits-Min/Iron/FA/Lutein [Centrum Silver Women Tablet] 1 tab PO DAILY Quetiapine Fumarate [Seroquel] 25 mg PO QHS 02/05/17 Umeclidinium [place] [Incruse Ellipta] 1 puff IH DAILY 02/05/17 Allergies/Adverse Reactions: formaldehyde [Formaldehyde] Allergy (Mild, Verified 09/17/13 12:41) Hives cephalexin monohydrate [From Keflex] Allergy (Unknown, Verified 09/17/13 12:41) Hives haloperidol [Haloperidol] Allergy (Unknown, Verified 09/17/13 12:41) stiff neck albuterol [Albuterol] Allergy (Verified 09/17/13 12:41) trembling betaxolol HCl [From Betoptic S] Allergy (Verified 09/17/13 12:41) interferred with copd meds chlorpromazine HCl [From Thorazine] Allergy (Verified 09/17/13 12:41) jittery indomethacin [From Indocin] Allergy (Verified 09/17/13 12:41) meperidine HCl [From Demerol] Allergy (Verified 09/17/13 12:41) morphine [Morphine] Allergy (Verified 09/17/13 12:41) prednisone [Prednisone] Allergy (Verified 09/17/13 12:41) quinine [Quinine] Allergy (Verified 09/17/13 12:41) stiff neck 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 hydrocarbons Allergy (Uncoded 09/17/13 12:41) intensifies her senses thistle Allergy (Uncoded 09/17/13 12:41) itching Review of Systems ROS unobtainable: Due to mental status Physical Exam Vital Signs: Temp Pulse Resp BP Pulse Ox 98.2 F 83 16 142/54 H 99 02/07/17 15:35 02/07/17 16:22 02/07/17 16:22 02/07/17 15:35 02/07/17 16:22 Intake & Output 02/06/17 02/07/17 02/08/17 06:59 06:59 06:59 Intake Total 723 1220 360 Balance 723 1220 360 Weight 63.4 kg 60.1 kg Exam: GEN: NAD, cooperative with exam, well groomed, well developed HEENT: head normocephalic, atraumatic, EOMI, PERRLA, (-)scleral icterus, (-) hearing grossly intact, mucous membranes moist. NECK: soft, nontender, no increased JVP visible, (-)hepatojugular reflex elicited, no significant cervical lymphadenopathy, (-)thyromegaly, Other findings: no lymphadenopathy, trachea is central RESP: no respiratory distress, bilaterally wheezes,rhonchi noted, clear to percussion bilaterally CV: NL S1, NL S2, (-)S3 gallop, (-)S4 gallop, regular rate and rhythm, 2/6 murmur is systolic, best heard at L sternal border, 1/6 pansystolic murmur noted in the mitral area, no increased JVP visible, (-)heave, (-)parasternal lift, (-)thrill , reduced peripheral pulses GI: (-)decreased bowel sounds, soft, nontender to palpation, no rebound/guarding /rigidity, (-)hepatomegaly, (-)splenomegaly, (-)masses DERM: no significant rash, ecchymosis or pruritus noted EXT: (-)cyanosis, (-)clubbing, (1+)edema, no acute joint swelling noted MUSC/SKEL: NL upper extremity exam BL, NL lower extremity exam BL NEURO: sensation grossly intact, CN II-XII intact and nonfocal, PSYCH: noted to be confused. Insight can not be checked. Results Laboratory Results: 02/06/17 06:18 02/07/17 08:01 02/07/17 08:01 Sodium 146.3 H Potassium 4.4 Chloride 93 L Carbon Dioxide 43 H* Anion Gap 10 BUN 38 H Creatinine 1.14 Est GFR ( Amer) 56 L Est GFR (Non-Af Amer) 46 L Glucose 93 Calcium 9.8 02/06/17 03:10 Nasophary (Mrsa Only) MRSA Surveillance Culture - Final NO MRSA RECOVERED 02/05/17 02/06/17 10:50 06:18 Troponin I 0.111 0.155 EKG Comments: EKG x2 reviewed. Showed sinus rhythm, no acute ST-T wave changes are noted. Impressions: Chest/Abdomen CTA 02/04/17 21:11 IMPRESSION: NO PULMONARY EMBOLI. Scattered subsegmental atelectasis. Left ventricular hypertrophy. Chest X-Ray 02/06/17 06:00 IMPRESSION: NO ACUTE RADIOGRAPHIC FINDING IN THE CHEST. Assessment & Plan - Diagnosis (1) Acute on chronic respiratory failure Qualifiers: Respiratory failure complication: hypoxia and hypercapnia Qualified Code(s): J96.21 - Acute and chronic respiratory failure with hypoxia Is this a current diagnosis for this admission?: Yes (2) COPD exacerbation Is this a current diagnosis for this admission?: Yes (3) Elevated troponin Is this a current diagnosis for this admission?: Yes (4) Hypertension Qualifiers: Hypertension type: essential hypertension Qualified Code(s): I10 - Essential (primary) hypertension Is this a current diagnosis for this admission?: Yes (5) Psychosis Qualifiers: Psychosis type: delusional disorder Qualified Code(s): F22 - Delusional disorders Is this a current diagnosis for this admission?: Yes (6) Syncope Qualifiers: Syncope type: unspecified Qualified Code(s): R55 - Syncope and collapse Is this a current diagnosis for this admission?: Yes (7) Elevated brain natriuretic peptide (BNP) level Is this a current diagnosis for this admission?: Yes - Notes Notes: Elevated troponin I.: Patient noted to have mild elevation of troponin I. These are most likely related to COPD exacerbation, respiratory acidosis. Doubt acute coronary syndrome in the absence of significant EKG changes. Patient may have underlying CAD. Patient would benefit from stress test when she is able to cooperate. At this point would recommend statins, antiplatelet therapy, ROSCOE inhibitor therapy etc. Fall risk assessment clinic and a 2-D echocardiogram. Medical management is recommended in view of significant comorbid problems COPD with exacerbation: Continue his steroids and bronchodilator therapy. Continue antibiotic therapy. Hypertension: Recommend good control of blood pressure. This is under reasonable control. 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 She has also been noted to take off IV cannulas. Syncope: Most likely related to severe hypoxemia related COPD exacerbation. EKG does not show any sickness and conduction disease and is showing sinus rhythm. When patient more stable consider scheduling an event monitor as an outpatient. Elevated BNP level: Most likely related to RV strain, RV failure. Clinical exam suggest that patient is compensated as regards CHF on today's exam. Chest x-ray shows no evidence of CHF. - Time Time Spent: 30 to 50 Minutes Medications reviewed and adjusted accordingly: Yes
[2017-02-07] MEDS: ATORVASTATIN CALCIUM 10 MG TABLET PO SCH (22:11)
[2017-02-07] MEDS: MONTELUKAST SODIUM 10 MG TABLET PO SCH (22:12)
[2017-02-07 23:35] LABS: CHOLESTEROL 176.93 mg/dL (0-200); Direct HDL 84 mg/dL (>40); TRIGLYCERIDES 103 mg/dL (<150)
[2017-02-07 23:46] LABS: DIRECT LDL 60 mg/dL (<100)
[2017-02-08 00:20] LABS: VENOUS BLOOD BASE EXCESS 13.1 mmol/L; VENOUS BLOOD HCO3 41.3 mmol/L (20-32); VENOUS BLOOD PH 7.38 (7.30-7.42)
[2017-02-08 00:23] LABS: VENOUS BLOOD PCO2 70.8 mmHg (35-63)
[2017-02-08] MEDS: METHYLPREDNISOLONE 4 MG TABLET PO SCH ×3 (06:24→18:42)
[2017-02-08] MEDS: GABAPENTIN 100 MG CAPSULE PO SCH ×2 (06:24→18:25)
[2017-02-08] MEDS: CETIRIZINE 10 MG TABLET PO SCH (09:35)
[2017-02-08] MEDS: LEVOTHYROXINE SODIUM 0.05 MG TABLET PO SCH (09:35)
[2017-02-08] MEDS: ASPIRIN 81 MG TABLET, ENT COATED PO SCH (09:35)
[2017-02-08] MEDS: LISINOPRIL 10 MG TABLET PO SCH (09:35)
[2017-02-08] MEDS: ACETAZOLAMIDE 250 MG TABLET PO SCH (09:36)
[2017-02-08] MEDS: CARVEDILOL 6.25 MG TABLET PO SCH ×2 (09:36→21:10)
[2017-02-08] MEDS: AMLODIPINE BESYLATE 10 MG TABLET PO SCH (09:36)
[2017-02-08] MEDS: CALCIUM CARBONATE 250 MG/VITAMIN D3 125 UNIT TABLET PO SCH ×2 (09:36→18:25)
[2017-02-08] MEDS: PRENATAL VITAMIN W-O CA NO5/FE FUMARATE/FA CAPSULE PO SCH (09:36)
[2017-02-08] MEDS: FLUTICASONE/SALMETEROL DISKUS 250-50 MCG/DOSE IH SCH ×2 (09:37→21:10)
[2017-02-08] MEDS ORDERED: ZIPRASIDONE HCL 20 MG CAPSULE PO SCH (10:00)
[2017-02-08] MEDS ORDERED: FUROSEMIDE 40 MG TABLET PO SCH (10:00)
[2017-02-08 12:07] LABS: BLOOD UREA NITROGEN 44 mg/dL (7-20); CALCIUM 10.4 mg/dL (8.4-10.2); CHLORIDE 87 mmol/L (98-107); CREATININE RESULT 1.36 mg/dL (0.52-1.25); GLUCOSE 155 mg/dL (75-110); SODIUM 142.3 mmol/L (137-145)
[2017-02-08 12:15] LABS: ANION GAP 11 (5-19)
[2017-02-08 12:20] LABS: CARBON DIOXIDE 44 mmol/L (22-30)
[2017-02-08] MEDS ORDERED: NORMAL SALINE 1000 ML 1,000 ML IV PRN (13:33)
[2017-02-08] MEDS ORDERED: ZIPRASIDONE MESYLATE INJ/PF 20 MG SDV IM ONE (13:45)
--- NOTE | 2017-02-08 15:59 | EKG REPORT ---
SEVERITY:- ABNORMAL ECG - SINUS RHYTHM PROBABLE LEFT VENTRICULAR HYPERTROPHY : Confirmed by: Aliyah Mendoza 08-Feb-2017 15:58:36
--- NOTE | 2017-02-08 20:11 | XCELERA REPORT ---
[address] [address] Transthoracic Echocardiogram Report Name: CARMELO CORONEL Age: 76 yrs Gender: Female : 1940 Patient Status: Inpatient Patient Location: 4S\S\429\S\A Study Date: 02/08/2017 02:04 PM Height: 58 in Weight: 132 lb BSA: 1.5 m2 Procedure: A complete two-dimensional transthoracic echocardiogram was performed (2D, M-mode, spectral and color flow Doppler). The study was technically difficult with many images being suboptimal in quality. Reason For Study: troponin abn Ordering Physician: ALIYAH REGAN Performed By: Beatrice Merino Interpretation Summary The left ventricular ejection fraction is normal. There is borderline concentric left ventricular hypertrophy. The left ventricle is grossly normal size. Doppler measurements suggest pseudonormalized left ventricular relaxation, which is associated with grade II/IV or mild to moderate diastolic dysfunction Wall motion cannot be accurately commented on, but no definite regional wall motion abnormalities noted. The right ventricular systolic function is normal. The left atrium is mildly dilated. The right atrium is normal. There is a mild amount of mitral regurgitation There is no mitral valve stenosis. There is moderate to severe aortic stenosis There is a peak gradient of 65-70, mean 40 mm of Hg. There is a mild amount of aortic regurgitation There is no tricuspid stenosis. There is a trace or physiologic amount of tricuspid regurgitation The aortic root is not well visualized. The inferior vena cava appeared normal and decreased > 50% with respiration (RAP 5-10 mmHg) There is no pericardial effusion. MMode/2D Measurements \T\ Calculations RVDd: 2.1 cm LVIDd: 4.4 cm FS: 27.4 % Ao root diam: 2.8 cm IVSd: 0.96 cm LVIDs: 3.2 cm EDV(Teich): 85.6 ml LVPWd: 1.0 cm ESV(Teich): 39.7 ml Ao root area: 6.0 cm2 EF(Teich): 53.6 % LA dimension: 3.8 cm LVOT diam: 1.8 cm LVOT area: 2.7 cm2 Doppler Measurements \T\ Calculations MV E max chalino: MV P1/2t max chalino: Ao V2 max: AI max chalino: 97.2 cm/sec 96.3 cm/sec 413.1 cm/sec 392.1 cm/sec MV A max chalino: MV P1/2t: 86.6 msec Ao max PG: AI max P.6 cm/sec MVA(P1/2t): 2.5 cm2 68.7 mmHg 61.5 mmHg MV E/A: 0.65 MV dec slope: Ao V2 mean: AI dec slope: 325.4 cm/sec2 296.3 cm/sec 195.0 cm/sec2 Ao mean PG: AI P1/2t: 40.3 mmHg 588.9 msec Ao V2 VTI: 93.9 cm GISEL(I,D): 0.86 cm2 GISEL(V,D): 0.73 cm2 LV V1 max PG: SV(LVOT): 80.5 ml PA V2 max: TR max chalino: 5.2 mmHg 77.5 cm/sec 243.2 cm/sec LV V1 mean PG: PA max PG: TR max P.1 mmHg 2.4 mmHg 23.7 mmHg LV V1 max: 114.0 cm/sec LV V1 mean: 82.7 cm/sec LV V1 VTI: 30.3 cm Left Ventricle The left ventricle is grossly normal size. There is borderline concentric left ventricular hypertrophy. The left ventricular ejection fraction is normal. Doppler measurements suggest pseudonormalized left ventricular relaxation, which is associated with grade II/IV or mild to moderate diastolic dysfunction. Wall motion cannot be accurately commented on, but no definite regional wall motion abnormalities noted. Right Ventricle The right ventricle is grossly normal size. There is normal right ventricular wall thickness. The right ventricular systolic function is normal. Atria The right atrium is normal. The left atrium is mildly dilated. Interarterial septum not well visualized and not well dopplered. Cannot comment on ASD/PFO presence. Mitral Valve There is mild to moderate mitral leaflet calcification. There is mild to moderate mitral annular calcification. There is no mitral valve stenosis. There is a mild amount of mitral regurgitation. Aortic Valve The aortic valve is moderately calcified. There is moderate to severe aortic stenosis. There is a peak gradient of 65-70, mean 40 mm of Hg. There is a mild amount of aortic regurgitation. Tricuspid Valve The tricuspid valve is not well visualized secondary to technical limitations. There is no tricuspid stenosis. There is a trace or physiologic amount of tricuspid regurgitation. Pulmonic Valve The pulmonic valve is not well visualized. Great Vessels The aortic root is not well visualized. The inferior vena cava appeared normal and decreased > 50% with respiration (RAP 5-10 mmHg). Effusions There is no pericardial effusion. : ALIYAH REGAN > Aliyah Regan
[2017-02-08] MEDS: ALPRAZOLAM 0.25 MG TABLET PO PRN (20:19)
[2017-02-08] MEDS: ZIPRASIDONE HCL 20 MG CAPSULE PO SCH (21:10)
[2017-02-08] MEDS: ATORVASTATIN CALCIUM 10 MG TABLET PO SCH (21:10)
[2017-02-08] MEDS: MONTELUKAST SODIUM 10 MG TABLET PO SCH (21:10)
--- NOTE | 2017-02-08 21:33 | PROGRESS NOTE E ---
Progress Note NAME: CARMELO CORONEL : 1940 AGE: 76Y DATE: 02/08/2017 ROOM: 429 SUBJECTIVE: Note that the patient was pleasantly confused, but still knows her name. She denies any shortness of breath. She appears to be comfortable. There is no chest pain. The patient is lying flat. There is no pedal edema. There is no PND. The patient does not want to be on the monitor, hence she is off telemetry. No other symptoms can be elicited at this time. OBJECTIVE: VITAL SIGNS: She is afebrile with a temperature of 97.4 degrees Fahrenheit, pulse is 69 beats/minute, blood pressure is 141/55, respirations are 16 per minute, O2 sats are 96% on 2L nasal cannula. GENERAL: The patient is well-built and seems to be chronically ill. HEENT: Normocephalic, atraumatic. Pupils are equal, round, regular and reactive to light and accommodation. Extraocular movements are normal. There is no conjunctival pallor. There is no scleral icterus. ENT is negative. NECK: Supple. There is no JVD. There is no lymphadenopathy. Carotids are equal. There is no bruit. There is transmitted murmur from the aortic area. There is transmitted murmur from the aortic area through both carotids. There is bilateral carotid delay. There is no goiter. Trachea is central. LUNGS: Diminished air entry with prolonged expiration with scattered rhonchi bilaterally. There is no wheezing or rales. There are no rales or CHF. HEART: S1 and S2 is heard. There is no S3 gallop. There is no S4 gallop. There is systolic murmur of aortic stenosis grade 3/6 with a thrill with radiation to the carotids. *------* is not heard. There is also murmur in the mitral area with gradient radiation to the apex. There is no rub. ABDOMEN: Soft, nontender. There is no hepatosplenomegaly. Bowel sounds are well heard. EXTREMITIES: Femorals are diminished. Leg pulses are diminished. There is no pedal edema. There is no DVT or cellulitis. There is no cyanosis or clubbing. CENTRAL NERVOUS SYSTEM: The patient is oriented only to person, but otherwise confused. There are no focal deficits. PSYCHIATRIC: The patient is pleasantly confused and not agitated. Other psychiatric exam could not be done. DIAGNOSTICS: Note that the patient's echocardiogram report is pending. The patient's sodium is 142.3, potassium 4.0, chloride 87, CO2 is 44. The patient's BUN is 44, creatinine 1.36. GFR is reduced at 38. The patient's white count is 10,500, hemoglobin 11.8, hematocrit is 36, platelets are 193,000. Her EKG shows sinus rhythm with possible LVH, but no acute changes. Her last troponin was done on 02/06/2017, which was 0.155. IMPRESSION: 1. [id number] RESPIRATORY FAILURE, IMPROVING ON CURRENT TREATMENT. 2. COPD ACUTE EXACERBATION. 3. ELEVATED TROPONIN, MOST LIKELY SECONDARY TO THE PATIENT'S RESPIRATORY FAILURE. NO DEFINITE EVIDENCE OF WPQ-BS-CAMBFRENM CA. 4. HYPOTENSION. 5. HISTORY OF BIPOLAR DISORDER WITH EPISODIC PSYCHOSIS. 6. HISTORY OF SYNCOPE. 7. AORTIC STENOSIS, MOST LIKELY SEVERE BY PHYSICAL EXAM, AWAIT ECHOCARDIOGRAM REPORT. 8. MOST LIKELY THE PATIENT HAS CHRONIC KIDNEY DISEASE, WHICH IS NOW STAGE III. THE GFR IS REDUCED FURTHER FROM 46 ML PER MINUTE FROM YESTERDAY. 9. ELEVATED BNP LEVEL, MOST LIKELY RELATED TO RENAL FAILURE. THERE IS NO EVIDENCE OF CONGESTIVE HEART FAILURE. NOTE WOULD CONTINUE CURRENT TREATMENT. 10. HYPOTHYROIDISM. PLAN: Would be very cautious in ROSCOE inhibitor therapy. Would continue her amlodipine. Would recommend to continue levothyroxine. In view of the patient's renal failure and aortic stenosis, will avoid lisinopril and maybe start her on some other antihypertensive. We will discuss with the hospitalist taking care of the patient. Note, the echocardiogram report is pending as mentioned earlier. The patient is DNR. Her son is her surrogate healthcare decision maker. We will follow with you. Will recheck the patient's troponin in the a.m. DICTATING PHYSICIAN: SCAR BUSTAMANTE M.D. [id number] PHY#: [id number] ID: [id number] JOB#: [id number] ACCT: [id number] cc: >
[2017-02-09] MEDS: METHYLPREDNISOLONE 4 MG TABLET PO SCH ×4 (00:52→17:44)
[2017-02-09] MEDS: GABAPENTIN 100 MG CAPSULE PO SCH ×2 (05:35→23:13)
[2017-02-09] MEDS: CALCIUM CARBONATE 250 MG/VITAMIN D3 125 UNIT TABLET PO SCH ×3 (07:48→17:44)
[2017-02-09] MEDS: LEVOTHYROXINE SODIUM 0.05 MG TABLET PO SCH (07:48)
[2017-02-09] MEDS: PRENATAL VITAMIN W-O CA NO5/FE FUMARATE/FA CAPSULE PO SCH (09:24)
[2017-02-09] MEDS: CARVEDILOL 6.25 MG TABLET PO SCH ×2 (09:24→23:24)
[2017-02-09] MEDS: ZIPRASIDONE HCL 20 MG CAPSULE PO SCH (09:24)
[2017-02-09] MEDS: ASPIRIN 81 MG TABLET, ENT COATED PO SCH (09:24)
[2017-02-09] MEDS: CETIRIZINE 10 MG TABLET PO SCH (09:24)
[2017-02-09] MEDS: LISINOPRIL 10 MG TABLET PO SCH (09:24)
[2017-02-09] MEDS: AMLODIPINE BESYLATE 10 MG TABLET PO SCH (09:25)
[2017-02-09] MEDS: ACETAZOLAMIDE 250 MG TABLET PO SCH (09:25)
[2017-02-09] MEDS: FLUTICASONE/SALMETEROL DISKUS 250-50 MCG/DOSE IH SCH ×2 (09:25→23:14)
[2017-02-09] MEDS: ALPRAZOLAM 0.25 MG TABLET PO PRN (17:44)
[2017-02-09] MEDS ORDERED: ZIPRASIDONE HCL 20 MG CAPSULE PO SCH (22:00)
[2017-02-09] MEDS: ATORVASTATIN CALCIUM 10 MG TABLET PO SCH (23:12)
[2017-02-09] MEDS: MONTELUKAST SODIUM 10 MG TABLET PO SCH (23:13)
[2017-02-09] MEDS: ZIPRASIDONE HCL 40 MG CAPSULE PO SCH (23:13)
--- NOTE | 2017-02-09 23:17 | PDOC PROGRESS REPORT ---
Subjective Progress Note for:: 02/08/17 Subjective:: Patient is cuddling a stuffed doll and breast-feeding it. Patient then reports that she no longer wants to stay. She reports her breathing is improved. Unable to obtain review of systems secondary to patient's tangential process. Physical Exam Vital Signs: Temp Pulse Resp BP Pulse Ox 98.2 F 83 16 142/54 H 99 02/07/17 15:35 02/07/17 16:22 02/07/17 16:22 02/07/17 15:35 02/07/17 16:22 Intake & Output 02/07/17 02/08/17 02/09/17 06:59 06:59 06:59 Intake Total 1220 360 Balance 1220 360 Weight 60.1 kg 59.8 kg Exam: General: Awake alert and oriented x3, no acute respiratory distress HEENT: AT/NC, PERRL, EOMI, oropharynx is moist, pink, no scleral icterus, no conjunctival injection Neck: No JVD, trachea midline Chest: Wheezes bilaterally CV: Regular rate and rhythm, normal S1 and S2, no rub or gallop Abdomen: Soft, nontender to palpation, nondistended, active bowel sounds; no rebound, rigidity, or guarding Extremities: No cyanosis, clubbing or edema Neuro: Cranial nerves II through XII are grossly intact without focal deficits; awake alert and oriented x3 Psych: transgression thought, flight of ideas, overtly delusional Results Laboratory Results: 02/06/17 06:18 02/07/17 08:01 02/07/17 02/07/17 02/08/17 08:01 23:00 00:00 VBG pH 7.38 VBG pCO2 70.8 H* VBG HCO3 41.3 H VBG Base Excess 13.1 Sodium 146.3 H Potassium 4.4 Chloride 93 L Carbon Dioxide 43 H* Anion Gap 10 BUN 38 H Creatinine 1.14 Est GFR ( Amer) 56 L Est GFR (Non-Af Amer) 46 L Glucose 93 Calcium 9.8 Triglycerides 103 Cholesterol 176.93 LDL Cholesterol Direct 60 VLDL Cholesterol 21.0 HDL Cholesterol 84 02/06/17 03:10 Nasophary (Mrsa Only) MRSA Surveillance Culture - Final NO MRSA RECOVERED 02/05/17 02/06/17 10:50 06:18 Troponin I 0.111 0.155 Impressions: Chest/Abdomen CTA 02/04/17 21:11 IMPRESSION: NO PULMONARY EMBOLI. Scattered subsegmental atelectasis. Left ventricular hypertrophy. Chest X-Ray 02/06/17 06:00 IMPRESSION: NO ACUTE RADIOGRAPHIC FINDING IN THE CHEST. Assessment & Plan - Diagnosis (1) Psychosis Qualifiers: Psychosis type: delusional disorder Qualified Code(s): F22 - Delusional disorders Is this a current diagnosis for this admission?: YesPlan: Increase Geodon at this time and give additional dose now. Patient's QTc is 0.457. Although oriented, patient is quite clearly delusional and given her current needs is unable to sign out AGAINST MEDICAL ADVICE. Have consulted psychology. Feel this is likely secondary to corticosteroids or in part exacerbated by them. (2) Acute on chronic respiratory failure Qualifiers: Respiratory failure complication: hypoxia and hypercapnia Qualified Code(s): J96.21 - Acute and chronic respiratory failure with hypoxia Is this a current diagnosis for this admission?: YesPlan: Continue oxygen. Secondary to COPD (3) COPD exacerbation Is this a current diagnosis for this admission?: YesPlan: Continue current dose of methylprednisone. Patient reports an allergy to prednisone. Though mildly improved, patient is still far from baseline. (4) Elevated troponin Is this a current diagnosis for this admission?: YesPlan: Have consulted cardiology. Appreciate their input. Patient's troponin topped out at 0.155 Likely secondary to strain (5) Hypertension Qualifiers: Hypertension type: essential hypertension Qualified Code(s): I10 - Essential (primary) hypertension Is this a current diagnosis for this admission?: YesPlan: Patient currently on Norvasc, carvedilol. Well-controlled (6) Hypothyroidism Qualifiers: Hypothyroidism type: unspecified Qualified Code(s): E03.9 - Hypothyroidism, unspecified Is this a current diagnosis for this admission?: YesPlan: Continue Synthroid (7) Syncope Qualifiers: Syncope type: unspecified Qualified Code(s): R55 - Syncope and collapse Is this a current diagnosis for this admission?: Yes (8) DVT prophylaxis Is this a current diagnosis for this admission?: Yes - Time Time Spent with patient: 25-34 minutes Medications reviewed and adjusted accordingly: Yes
[2017-02-09] MEDS ORDERED: NORMAL SALINE 1000 ML 1,000 ML IV PRN (23:22)
--- NOTE | 2017-02-09 23:22 | PDOC PROGRESS REPORT ---
Subjective Progress Note for:: 02/09/17 Subjective:: Patient is pleasantly delusional today. She is quite happy to see me. She reports her breathing has improved. She does speak of having been in [place] for time. Unable to obtain full review of systems secondary to patient 's underlying psychosis. Physical Exam Vital Signs: Temp Pulse Resp BP Pulse Ox 97.9 F 81 22 H 108/39 L 94 02/09/17 19:00 02/09/17 19:00 02/09/17 19:00 02/09/17 19:00 02/09/17 19:00 Intake & Output 02/08/17 02/09/17 02/10/17 06:59 06:59 06:59 Intake Total 360 1136 1038 Balance 360 1136 1038 Weight 59.8 kg 62.6 kg Exam: General: Awake alert and oriented x3, no acute respiratory distress HEENT: AT/NC, PERRL, EOMI, oropharynx is moist, pink, no scleral icterus, no conjunctival injection Neck: No JVD, trachea midline Chest: Improved air excursion, Wheezes bilaterally CV: Regular rate and rhythm, normal S1 and S2, no rub or gallop; 3/6 sm best heard at the right upper sternal border with radiation to the carotids Abdomen: Soft, nontender to palpation, nondistended, active bowel sounds; no rebound, rigidity, or guarding Extremities: No cyanosis, clubbing or edema Neuro: Cranial nerves II through XII are grossly intact without focal deficits; awake alert and oriented x3 Psych: Somewhat improved, transgression thought, flight of ideas, overtly delusional Results Laboratory Results: 02/06/17 06:18 02/08/17 11:17 02/05/17 02/06/17 02/09/17 10:50 06:18 06:50 Troponin I 0.111 0.155 0.069 Impressions: Chest/Abdomen CTA 02/04/17 21:11 IMPRESSION: NO PULMONARY EMBOLI. Scattered subsegmental atelectasis. Left ventricular hypertrophy. Chest X-Ray 02/06/17 06:00 IMPRESSION: NO ACUTE RADIOGRAPHIC FINDING IN THE CHEST. Assessment & Plan - Diagnosis (1) Psychosis Qualifiers: Psychosis type: delusional disorder Qualified Code(s): F22 - Delusional disorders Is this a current diagnosis for this admission?: YesPlan: Increase Geodon at this time. Repeat EKG to monitor QTC. Patient will not wear monitor Appreciate psychology input Feel this is likely secondary to corticosteroids or in part exacerbated by them. (2) Acute on chronic respiratory failure Qualifiers: Respiratory failure complication: hypoxia and hypercapnia Qualified Code(s): J96.21 - Acute and chronic respiratory failure with hypoxia Is this a current diagnosis for this admission?: Yes (3) COPD exacerbation Is this a current diagnosis for this admission?: YesPlan: Will only minor be improved will give one more day of methylprednisolone at this dose and then will decrease beginning tomorrow. Though mildly improved, patient is still far from baseline. (4) Elevated troponin Is this a current diagnosis for this admission?: YesPlan: Have consulted cardiology. Appreciate their input. Patient's troponin topped out at 0.155 Likely secondary to strain (5) Hypertension Qualifiers: Hypertension type: essential hypertension Qualified Code(s): I10 - Essential (primary) hypertension Is this a current diagnosis for this admission?: YesPlan: Patient currently on Norvasc, carvedilol. Well-controlled (6) Hypothyroidism Qualifiers: Hypothyroidism type: unspecified Qualified Code(s): E03.9 - Hypothyroidism, unspecified Is this a current diagnosis for this admission?: YesPlan: Continue Synthroid (7) Syncope Qualifiers: Syncope type: unspecified Qualified Code(s): R55 - Syncope and collapse Is this a current diagnosis for this admission?: YesPlan: Patient with syncope likely related to severe aortic stenosis. (8) Aortic stenosis Qualifiers: Cardiac valve disease etiology: etiology unspecified Qualified Code( s): I35.0 - Nonrheumatic aortic (valve) stenosis Is this a current diagnosis for this admission?: YesPlan: Patient with moderate to severe aortic stenosis and her syncope could be secondary to this. (9) DVT prophylaxis Is this a current diagnosis for this admission?: Yes - Time Time Spent with patient: 25-34 minutes Medications reviewed and adjusted accordingly: Yes
[2017-02-09] MEDS ORDERED: LISINOPRIL 10 MG TABLET PO SCH (23:23)
[2017-02-10] MEDS: METHYLPREDNISOLONE 4 MG TABLET PO SCH ×4 (00:53→17:08)
[2017-02-10] MEDS: ACETAMINOPHEN 325 MG TABLET PO PRN (00:54)
[2017-02-10] MEDS: GABAPENTIN 100 MG CAPSULE PO SCH ×3 (06:06→21:39)
[2017-02-10 07:00] LABS: ABSOLUTE LYMPHOCYTES (AUTO) 0.9 10^3/uL (0.5-4.7); ABSOLUTE MONOCYTES (AUTO) 0.7 10^3/uL (0.1-1.4); ABSOLUTE NEUT (AUTO) 9.4 10^3/uL (1.7-8.2); BASOPHILS % (AUTO) 0.3 % (0-2); HEMATOCRIT 35.5 % (36.0-47.0); HEMOGLOBIN 11.6 g/dL (12.0-15.5); HGB HCT DIFFERENCE -0.7; LYMPHOCYTES % (AUTO) 8.3 % (13-45); MEAN CORPUSCULAR HEMOGLOBIN 30.7 pg (27.0-33.4); MEAN CORPUSCULAR HGB CONC 32.7 g/dL (32.0-36.0); MEAN CORPUSCULAR VOLUME 94 fl (80-97); RED BLOOD COUNT 3.78 10^6/uL (3.72-5.28); RED CELL DISTRIBUTION WIDTH 12.7 % (11.5-14.0); SEGMENTED NEUTROPHILS % (AUTO) 85.4 % (42-78)
[2017-02-10 07:18] LABS: ANION GAP 11 (5-19); BLOOD UREA NITROGEN 51 mg/dL (7-20); CALCIUM 9.3 mg/dL (8.4-10.2); CARBON DIOXIDE 34 mmol/L (22-30); CHLORIDE 100 mmol/L (98-107); CREATININE RESULT 1.42 mg/dL (0.52-1.25); GLUCOSE 141 mg/dL (75-110); MAGNESIUM 2.2 mg/dL (1.6-2.3); POTASSIUM 4.8 mmol/L (3.6-5.0); SODIUM 144.6 mmol/L (137-145)
[2017-02-10] MEDS ORDERED: ZIPRASIDONE HCL 20 MG CAPSULE PO SCH (08:00)
--- NOTE | 2017-02-10 08:26 | EKG REPORT ---
SEVERITY:- NORMAL ECG - SINUS RHYTHM : Confirmed by: Aliyah Mendoza 10-Feb-2017 08:25:59
[2017-02-10] MEDS: LEVOTHYROXINE SODIUM 0.05 MG TABLET PO SCH (09:25)
[2017-02-10] MEDS: FLUTICASONE/SALMETEROL DISKUS 250-50 MCG/DOSE IH SCH ×2 (09:25→21:40)
[2017-02-10] MEDS: ZIPRASIDONE HCL 40 MG CAPSULE PO SCH ×2 (09:25→21:38)
[2017-02-10] MEDS: CARVEDILOL 6.25 MG TABLET PO SCH ×2 (09:26→21:40)
[2017-02-10] MEDS: CALCIUM CARBONATE 250 MG/VITAMIN D3 125 UNIT TABLET PO SCH ×3 (09:26→17:08)
[2017-02-10] MEDS: ASPIRIN 81 MG TABLET, ENT COATED PO SCH (09:26)
[2017-02-10] MEDS: CETIRIZINE 10 MG TABLET PO SCH (09:26)
[2017-02-10] MEDS: PRENATAL VITAMIN W-O CA NO5/FE FUMARATE/FA CAPSULE PO SCH (09:26)
[2017-02-10] MEDS: ALPRAZOLAM 0.25 MG TABLET PO PRN ×2 (11:24→21:39)
--- NOTE | 2017-02-10 18:17 | PDOC PROGRESS REPORT ---
Subjective Progress Note for:: 02/10/17 Subjective:: Patient is quite pleasant when she sees me. She tells me that I'm looking better than yesterday. Patient tells me that she created the trees on the screen. She reports she is breathing better. No new complaints. Physical Exam Vital Signs: Temp Pulse Resp BP Pulse Ox 97.5 F 81 20 118/67 96 02/10/17 00:00 02/10/17 00:00 02/10/17 00:00 02/10/17 00:00 02/10/17 00:00 Intake & Output 02/09/17 02/10/17 02/11/17 06:59 06:59 06:59 Intake Total 1136 1731 Balance 1136 1731 Weight 62.6 kg Exam: General: Awake alert and oriented x2, no acute respiratory distress HEENT: AT/NC, PERRL, EOMI, oropharynx is moist, pink, no scleral icterus, no conjunctival injection Neck: No JVD, trachea midline Chest: Improved air excursion, Wheezes bilaterally CV: Regular rate and rhythm, normal S1 and S2, no rub or gallop; 3/6 sm best heard at the right upper sternal border with radiation to the carotids Abdomen: Soft, nontender to palpation, nondistended, active bowel sounds; no rebound, rigidity, or guarding Extremities: No cyanosis, clubbing or edema Neuro: Cranial nerves II through XII are grossly intact without focal deficits; awake alert and oriented x2 Psych: Pleasantly delusional Results Laboratory Results: 02/10/17 06:00 02/10/17 06:00 02/10/17 02/10/17 06:00 06:00 WBC 11.0 H RBC 3.78 Hgb 11.6 L Hct 35.5 L MCV 94 MCH 30.7 MCHC 32.7 RDW 12.7 Plt Count 155 Seg Neutrophils % 85.4 H Lymphocytes % 8.3 L Monocytes % 6.0 Eosinophils % 0.0 Basophils % 0.3 Absolute Neutrophils 9.4 H Absolute Lymphocytes 0.9 Absolute Monocytes 0.7 Absolute Eosinophils 0.0 Absolute Basophils 0.0 Sodium 144.6 Potassium 4.8 Chloride 100 Carbon Dioxide 34 H Anion Gap 11 BUN 51 H Creatinine 1.42 H Est GFR ( Amer) 44 L Est GFR (Non-Af Amer) 36 L Glucose 141 H Calcium 9.3 Magnesium 2.2 02/05/17 02/06/17 02/09/17 10:50 06:18 06:50 Troponin I 0.111 0.155 0.069 Impressions: Chest/Abdomen CTA 02/04/17 21:11 IMPRESSION: NO PULMONARY EMBOLI. Scattered subsegmental atelectasis. Left ventricular hypertrophy. Chest X-Ray 02/06/17 06:00 IMPRESSION: NO ACUTE RADIOGRAPHIC FINDING IN THE CHEST. Assessment & Plan - Diagnosis (1) Psychosis Qualifiers: Psychosis type: delusional disorder Qualified Code(s): F22 - Delusional disorders Is this a current diagnosis for this admission?: YesPlan: Doing well with current Geodon at this time. QTC 463 on today's EKG. Patient will not wear monitor Appreciate psychology input. Will begin Depakote 500 by mouth twice a day Feel this is likely secondary to corticosteroids or in part exacerbated by them. (2) Acute on chronic respiratory failure Qualifiers: Respiratory failure complication: hypoxia and hypercapnia Qualified Code(s): J96.21 - Acute and chronic respiratory failure with hypoxia Is this a current diagnosis for this admission?: YesPlan: Continue oxygen. Secondary to COPD (3) COPD exacerbation Is this a current diagnosis for this admission?: YesPlan: Patient roughly the same and not improved. I'm reluctant to decrease steroids given her overt psychosis. Continue nebulized treatments. Patient is at high risk for adverse event if tapering on steroids at home due to her overt delusional disorder. (4) Elevated troponin Is this a current diagnosis for this admission?: YesPlan: Have consulted cardiology. Appreciate their input. Patient's troponin topped out at 0.155 Likely secondary to strain (5) Hypertension Qualifiers: Hypertension type: essential hypertension Qualified Code(s): I10 - Essential (primary) hypertension Is this a current diagnosis for this admission?: YesPlan: Patient currently on Norvasc, carvedilol. Well-controlled (6) Hypothyroidism Qualifiers: Hypothyroidism type: unspecified Qualified Code(s): E03.9 - Hypothyroidism, unspecified Is this a current diagnosis for this admission?: YesPlan: Continue Synthroid (7) Syncope Qualifiers: Syncope type: unspecified Qualified Code(s): R55 - Syncope and collapse Is this a current diagnosis for this admission?: YesPlan: Patient with syncope likely related to severe aortic stenosis. (8) Aortic stenosis Qualifiers: Cardiac valve disease etiology: etiology unspecified Qualified Code( s): I35.0 - Nonrheumatic aortic (valve) stenosis Is this a current diagnosis for this admission?: YesPlan: Patient with moderate to severe aortic stenosis and her syncope could be secondary to this. (9) DVT prophylaxis Is this a current diagnosis for this admission?: Yes - Time Time Spent with patient: 25-34 minutes Medications reviewed and adjusted accordingly: Yes
[2017-02-10] MEDS: ATORVASTATIN CALCIUM 10 MG TABLET PO SCH (21:39)
[2017-02-10] MEDS: MONTELUKAST SODIUM 10 MG TABLET PO SCH (21:40)
--- NOTE | 2017-02-11 00:18 | PROGRESS NOTE E ---
Progress Note NAME: CARMELO CORONEL : 1940 AGE: 76Y DATE: 02/09/2017 ROOM: 429 SUBJECTIVE: Note that the patient is awake, alert and oriented x3 but is very delusional. She denies any chest pain or discomfort. There is no shortness of breath. There is no cough. There is no pedal edema. There is no PND or orthopnea. There are no arrhythmias seen on the monitor. Since the patient is off the monitor, she will not wear the telemetry leads. No other symptoms at present. OBJECTIVE: VITAL SIGNS: The patient is afebrile with a temperature of 98.1 degrees Fahrenheit, pulse is 67 beats per minute, blood pressure of 120/56, respirations are 16 per minute, O2 sats are 85% on room air. Subsequently she has been placed on nasal O2 3 cannulas and the sats are much improved in the 90s. GENERAL: She is well built and seems to be well nourished in no acute distress but seems to be chronically ill. HEENT: Head is normocephalic, atraumatic. Eyes: Pupils are equal, round, regular, reactive to light and accommodation. Extraocular movements are normal. There is no conjunctival pallor. There is no scleral icterus. ENT is negative. NECK: Supple. There is no JVD. There is no lymphadenopathy. Carotids are equal. There is no bruit. There is a transmitted murmur of aortic stenosis murmur from the aortic area to both carotids. There is bilateral carotid delay. There is no goiter. Trachea is central. LUNGS: Show diminished air entry with prolonged expiration with scattered rhonchi bilaterally. There are no wheezes or rales. There is no rales of CHF. HEART: S1 and S2 are heard. There is no S3 gallop. There is no S4 gallop. There is a systolic murmur of aortic stenosis grade 3/6 with radiation of the murmur to the carotids. The A-II is not heard. There is also a murmur in the mitral area with radiation to the apex. There is no rub. ABDOMEN: Soft, nontender. There is no hepatosplenomegaly. Bowel sounds are heard. EXTREMITIES: Femorals are diminished. Leg pulses are diminished. There is no pedal edema. There is no DVT or cellulitis. There is no cyanosis or clubbing. CENTRAL NERVOUS SYSTEM: The patient is conscious, awake, alert and oriented x3 but seems very delusional. She is not confused anymore. There are no focal deficits. PSYCHIATRIC: The patient appears to be paranoid and delusional but is not agitated; in fact, is smiling. Judgment and insight cannot be evaluated at present. DIAGNOSTIC DATA: The patient's troponin I at this point is 0.69. The patient's echocardiogram shows that the left ventricular ejection fraction is normal. There is borderline concentric left ventricular hypertrophy. The left ventricle is grossly normal in size. There is grade 2/6 or mild to moderate diastolic dysfunction. Wall motion cannot be accurately commented on but no definite regional wall abnormality is noted. The right ventricular systolic function is normal. The left atrium is mildly dilated. The right atrium is normal. There is a mild amount of mitral regurgitation and there is no mitral valve stenosis. There is moderate to severe aortic stenosis but with a peak gradient of 65-70 with a mean of 40 mmHg. It seems that the patient has severe to critical aortic stenosis. There is a mild amount of aortic regurgitation. There is no tricuspid stenosis. There is trace physiologic amount of tricuspid regurgitation. The aortic root is not well visualized. There is no pericardial effusion. IMPRESSION: 1. [id number] RESPIRATORY FAILURE, MUCH IMPROVED ON CURRENT TREATMENT. 2. COPD WITH ACUTE EXACERBATION. At present there is no evidence of acute exacerbation. 3. ELEVATED TROPONIN I MOST LIKELY SECONDARY TO THE PATIENT'S RESPIRATORY FAILURE. No definite evidence of non-ST elevation ID. 4. HYPERTENSION. Blood pressure well controlled. 5. HISTORY OF BIPOLAR DISORDER WITH EPISODIC PSYCHOSIS. 6. DELUSIONAL DISORDER. 7. HISTORY OF SYNCOPE. 8. AORTIC STENOSIS. My interpretation is that the patient has severe to critical aortic stenosis by the mean gradient of 40. 9. MOST LIKELY THE PATIENT HAS CHRONIC KIDNEY DISEASE WHICH IS NOW STAGE 3. 10. HYPOTHYROIDISM. RECOMMENDATIONS: I have discussed the echo findings with the patient. I am not sure how much she understands. My recommendation would be to treat the patient's delusions, most likely secondary to bipolar disorder, and if the patient's psychiatric status is stabilized, even then, it would be hard to do a percutaneous aortic valve replacement due to the patient's chronic kidney disease and the patient's age. Continue levothyroxine. Note that the patient seems to be tolerating lisinopril. Continue her current medications. The case discussed with the hospitalist taking care of the patient. TIME SPENT: Note: 35 minutes spent on this patient with more than 50% of the time spent on direct patient care and review of the patient's medications and also discussions of the echocardiogram with the hospitalist. Will follow with you. DICTATING PHYSICIAN: SCAR BUSTAMANTE M.D. [id number] PHColin#: [id number] ID: [id number] JOB#: [id number] ACCT: [id number] cc: >
[2017-02-11] MEDS: METHYLPREDNISOLONE 4 MG TABLET PO SCH ×4 (00:19→17:17)
[2017-02-11] MEDS: GABAPENTIN 100 MG CAPSULE PO SCH ×3 (05:37→21:29)
[2017-02-11] MEDS: ACETAMINOPHEN 325 MG TABLET PO PRN (05:37)
[2017-02-11] MEDS: DIVALPROEX SODIUM 500 MG TAB.SR.24H PO SCH ×2 (10:14→21:29)
[2017-02-11] MEDS: CETIRIZINE 10 MG TABLET PO SCH (10:14)
[2017-02-11] MEDS: CALCIUM CARBONATE 250 MG/VITAMIN D3 125 UNIT TABLET PO SCH ×3 (10:21→17:17)
[2017-02-11] MEDS: CARVEDILOL 6.25 MG TABLET PO SCH ×2 (10:22→21:29)
[2017-02-11] MEDS: LEVOTHYROXINE SODIUM 0.05 MG TABLET PO SCH (10:22)
[2017-02-11] MEDS: ASPIRIN 81 MG TABLET, ENT COATED PO SCH (10:22)
[2017-02-11] MEDS: ALPRAZOLAM 0.25 MG TABLET PO PRN (10:22)
[2017-02-11] MEDS: PRENATAL VITAMIN W-O CA NO5/FE FUMARATE/FA CAPSULE PO SCH (10:22)
[2017-02-11] MEDS: FLUTICASONE/SALMETEROL DISKUS 250-50 MCG/DOSE IH SCH ×2 (10:23→21:29)
[2017-02-11] MEDS: ZIPRASIDONE HCL 40 MG CAPSULE PO SCH ×2 (10:23→21:29)
--- NOTE | 2017-02-11 14:03 | PROGRESS NOTE E ---
Progress Note NAME: CARMELO CORONEL : 1940 AGE: 76Y DATE: 02/10/2017 ROOM: 429 SUBJECTIVE: Note that the patient is awake, alert and oriented x3, but is also very delusional. She has flight of ideas. She denies any chest pain or discomfort and denies any shortness of breath. There is no cough. There is no pedal edema. There is no PND or orthopnea. The patient denies any palpitations. There are no TIA or CVA symptoms. OBJECTIVE: GENERAL: On examination, the patient is sitting, she is well built, but chronically ill. VITAL SIGNS: She is afebrile with a temperature of 97.7 degrees Fahrenheit, pulse is 67 beats per minute, blood pressure of 133/53, respirations are 16 per minute, O2 sats are 91% on room air. HEENT: Head is normocephalic, atraumatic. Eyes: Pupils are equal, round, regular, reactive to light and accommodation. Extraocular movements are normal. There is no conjunctival pallor. There is no scleral icterus. ENT is negative. NECK: Supple. There is no JVD. There is no lymphadenopathy. Carotids are equal. There is no bruit. There is a transmitted murmur of aortic stenosis murmur from the aortic area to both carotids. There is bilateral carotid delay. There is no goiter. Trachea is central. LUNGS: Show diminished air entry with prolonged expiration with scattered rhonchi bilaterally. There are a few wheezes present. There are no rales of CHF. HEART: S1 and S2 are heard. There is no S3 gallop. There is no S4 gallop. There is a systolic murmur of aortic stenosis grade 3/6 with thrill and with radiation to the carotids. The A-II is not heard. There is also a murmur in the mitral area with radiation to the apex. There is no rub. There is a systolic thrill in the aortic area. ABDOMEN: Soft, nontender. There is no hepatosplenomegaly. Bowel sounds are well heard. EXTREMITIES: Femorals are diminished. Leg pulses are diminished. There is no pedal edema. There is no DVT or cellulitis. There is no cyanosis or clubbing. CENTRAL NERVOUS SYSTEM: The patient is conscious, awake, alert and oriented x3, but seems to be very delusional. PSYCHIATRIC: The patient is paranoid and delusional but is not agitated. Judgment and insight cannot be evaluated at present. DIAGNOSTIC DATA: The patient's white count is 11,000; hemoglobin is 7.6; hematocrit is 35.5 and the platelet count is 155,000. The patient's sodium is 144.6, potassium is 4.8, chloride is 100, CO2 is 34. The patient's BUN is 51, creatinine is 1.42. GFR is reduced at 36 mL, which is grade CKD stage 3. The patient's magnesium is 2.2. On 02/09, the patient's troponin-I had come down to 0.069. IMPRESSION: 1. ACUTE ON CHRONIC RESPIRATORY FAILURE, IMPROVED. 2. COPD WITH ACUTE EXACERBATION. AT PRESENT THERE IS NO EVIDENCE OF ACUTE EXACERBATION. 3. ELEVATED TROPONIN-I MOST LIKELY SECONDARY TO THE PATIENT'S RESPIRATORY FAILURE. NO DEFINITE EVIDENCE OF NON-ST ELEVATION MN. 4. HYPERTENSION. BLOOD PRESSURE WELL CONTROLLED. 5. HISTORY OF BIPOLAR DISORDER WITH EPISODIC PSYCHOSIS. 6. DELUSIONAL DISORDER AND PARANOIA. 7. HISTORY OF SYNCOPE. 8. AORTIC STENOSIS. MY INTERPRETATION IS WITH THE MEAN GRADIENT OF 40, THE PATIENT HAS SEVERE TO CRITICAL AORTIC STENOSIS. 9. MOST LIKELY HAS CHRONIC KIDNEY DISEASE, STAGE 3. 10. HYPOTHYROIDISM. RECOMMENDATIONS: Continue current medications. I would continue the patient's levothyroxine. Note, in view of the patient's psychiatric problems, the patient's noncompliance, and the patient's chronic kidney disease, she is a not a candidate for an open aortic valve replacement or a percutaneous transaortic valvular replacement. Hence, we will treat her medically. Note that the patient is a DNR. Her son is her surrogate healthcare decision maker. TIME SPENT: Note, 30 minutes were spent on this patient, with more than 50% of that time in direct patient care and review of the patient's medications and also discussions with the hospitalist. Note, it took so long because the patient would always interrupt. DICTATING PHYSICIAN: SCAR BUSTAMANTE M.D. [id number] PHY#: [id number] ID: [id number] JOB#: [id number] ACCT: [id number] cc: >
--- NOTE | 2017-02-11 16:49 | PDOC PROGRESS REPORT ---
Subjective Progress Note for:: 02/11/17 Physical Exam Vital Signs: Temp Pulse Resp BP Pulse Ox 98.4 F 76 17 124/41 L 92 02/10/17 19:47 02/10/17 19:47 02/10/17 19:47 02/10/17 19:47 02/10/17 19:47 Intake & Output 02/10/17 02/11/17 02/12/17 06:59 06:59 06:59 Intake Total 1731 1235 Balance 1731 1235 Weight 63.2 kg Exam: General: Awake alert and oriented x2, no acute respiratory distress HEENT: AT/NC, PERRL, EOMI, oropharynx is moist, pink, no scleral icterus, no conjunctival injection Neck: No JVD, trachea midline Chest: Wheezes bilaterally CV: Regular rate and rhythm, normal S1 and S2, no rub or gallop; 3/6 sm best heard at the right upper sternal border with radiation to the carotids Abdomen: Soft, nontender to palpation, nondistended, active bowel sounds; no rebound, rigidity, or guarding Extremities: No cyanosis, clubbing or edema Neuro: Cranial nerves II through XII are grossly intact without focal deficits; awake alert and oriented x2 Psych: Pleasantly delusional Results Laboratory Results: 02/10/17 06:00 02/10/17 06:00 02/05/17 02/06/17 02/09/17 10:50 06:18 06:50 Troponin I 0.111 0.155 0.069 Impressions: Chest/Abdomen CTA 02/04/17 21:11 IMPRESSION: NO PULMONARY EMBOLI. Scattered subsegmental atelectasis. Left ventricular hypertrophy. Chest X-Ray 02/06/17 06:00 IMPRESSION: NO ACUTE RADIOGRAPHIC FINDING IN THE CHEST. Assessment & Plan - Diagnosis (1) Psychosis Qualifiers: Psychosis type: delusional disorder Qualified Code(s): F22 - Delusional disorders Is this a current diagnosis for this admission?: YesPlan: Doing well with current Geodon at this time. QTC 463 on today's EKG. Patient will not wear monitor Appreciate psychology input. Now on Depakote 500 by mouth twice a day Feel this is likely secondary to corticosteroids or in part exacerbated by them. (2) Acute on chronic respiratory failure Qualifiers: Respiratory failure complication: hypoxia and hypercapnia Qualified Code(s): J96.21 - Acute and chronic respiratory failure with hypoxia Is this a current diagnosis for this admission?: YesPlan: Continue oxygen. Secondary to COPD (3) COPD exacerbation Is this a current diagnosis for this admission?: YesPlan: Patient roughly the same and not improved. I'm reluctant to decrease steroids given her overt psychosis. Continue nebulized treatments. Patient is at high risk for adverse event if tapering on steroids at home due to her overt delusional disorder. (4) Elevated troponin Is this a current diagnosis for this admission?: YesPlan: Have consulted cardiology. Appreciate their input. Patient's troponin topped out at 0.155 Likely secondary to strain (5) Hypertension Qualifiers: Hypertension type: essential hypertension Qualified Code(s): I10 - Essential (primary) hypertension Is this a current diagnosis for this admission?: YesPlan: Patient currently on Norvasc, carvedilol. Well-controlled (6) Hypothyroidism Qualifiers: Hypothyroidism type: unspecified Qualified Code(s): E03.9 - Hypothyroidism, unspecified Is this a current diagnosis for this admission?: YesPlan: Continue Synthroid (7) Syncope Qualifiers: Syncope type: unspecified Qualified Code(s): R55 - Syncope and collapse Is this a current diagnosis for this admission?: YesPlan: Patient with syncope likely related to severe aortic stenosis. (8) Aortic stenosis Qualifiers: Cardiac valve disease etiology: etiology unspecified Qualified Code( s): I35.0 - Nonrheumatic aortic (valve) stenosis Is this a current diagnosis for this admission?: YesPlan: Patient with moderate to severe aortic stenosis and her syncope could be secondary to this. (9) DVT prophylaxis Is this a current diagnosis for this admission?: Yes - Time Time Spent with patient: 25-34 minutes Medications reviewed and adjusted accordingly: Yes
--- NOTE | 2017-02-11 21:23 | PROGRESS NOTE E ---
Progress Note NAME: CARMELO CORONEL : 1940 AGE: 76Y DATE: 02/11/2017 ROOM: 429 SUBJECTIVE: Note that the patient is awake, but she is very confused and agitated and generally confused. She keeps taking her oxygen off, but she keeps moving all 4 extremities. Hence, there is no TIA or CVA. The patient has been started on Geodon. OBJECTIVE: VITAL SIGNS: She is afebrile with temperature of 98.1 degrees Fahrenheit, pulse is 67 beats/minute, blood pressure is 120/56, respirations are 16 per minute, O2 sats are 85% on room air. The patient is going to be placed on nasal cannula, but she keeps pulling it out. GENERAL: The patient looks chronically ill. At present she is very agitated and delirious. She some visual and auditory hallucinations. HEENT: Normocephalic, atraumatic. Eyes: Pupils are equal, round, and reactive to light and accommodation. Extraocular movements are normal. There is no conjunctival pallor. There is no scleral icterus. ENT is negative. NECK: Supple. There is no JVD. There is no lymphadenopathy. Carotids are equal. There is no bruit. There is a transmitted murmur of aortic stenosis from the aortic area to both carotids. There is bilateral carotid delay. Trachea is central. There is no goiter. LUNGS: Diminished air entry with prolonged expiration with scattered rhonchi and wheezing bilaterally. There are no rales or CHF. HEART: S1 and S2 is heard. There is no S3 gallop. There is no S4 gallop. There is systolic murmur of aortic stenosis grade 3/6 with thrill and with radiation to the carotids. A2 is not heard. There is also a murmur of mitral regurgitation with radiation from the apex to the axilla. There is no rub. ABDOMEN: Soft, nontender. There is no hepatosplenomegaly. Bowel sounds are well heard. EXTREMITIES: Femorals are diminished. Leg pulses are diminished. There is no pedal edema. There is no DVT or cellulitis. There is no cyanosis or clubbing. CENTRAL NERVOUS SYSTEM: The patient is conscious, very confused and agitated and delirious. She has hallucinations as mentioned earlier. PSYCHIATRIC: The patient is confused and agitated. She has hallucinations. IMPRESSION: 1. ACUTE DELIRIUM AND PSYCHOSIS, MOST LIKELY THE PATIENT HAS SCHIZOAFFECTIVE DISORDER. 2. *------*EXACERBATION OF COPD, AT PRESENT THERE IS STILL SOME EVIDENCE OF EXACERBATION WITH WHEEZING. 3. [id number] RESPIRATORY FAILURE, SAME YESTERDAY. 4. ELEVATED TROPONIN, MOST LIKELY SECONDARY TO PATIENT'S RESPIRATORY FAILURE. NO EVIDENCE OF NON ST-ELEVATION NE. 5. HYPERTENSION, BLOOD PRESSURE WELL CONTROLLED. 6. HISTORY OF BIPOLAR DISORDER WITH EPISODIC PSYCHOSIS. 7. DELUSIONS AND HALLUCINATIONS, MOST LIKELY THE PATIENT HAS SCHIZOAFFECTIVE DISORDER. 8. HISTORY OF SYNCOPE. 9. AORTIC STENOSIS, MOST LIKELY SEVERELY CRITIC AORTIC STENOSIS. 10. CHRONIC KIDNEY DISEASE STAGE III. 11. HYPOTHYROIDISM. RECOMMENDATIONS: Continue respiratory treatments. Continue current medications. As mentioned earlier, in view of the patient's age, kidney functions and the patient's mental status, she is not a candidate for aortic valve replacement either open replacement or percutaneous valve replacement, especially with chronic kidney disease. Would recommend that the patient who is a DNR be made hospice/comfort care. Discussed with the hospitalist. We will sign off the case. Please ask me to see the patient on this admission if my services are needed. DICTATING PHYSICIAN: SCAR BUSTAMANTE M.D. [id number] SOLOMON#: [id number] ID: [id number] JOB#: [id number] ACCT: [id number] cc: >
[2017-02-11] MEDS: MONTELUKAST SODIUM 10 MG TABLET PO SCH (21:29)
[2017-02-11] MEDS ORDERED: ATORVASTATIN CALCIUM 20 MG TABLET PO SCH (22:00)
[2017-02-12] MEDS: METHYLPREDNISOLONE 4 MG TABLET PO SCH ×3 (01:05→12:19)
[2017-02-12] MEDS: GABAPENTIN 100 MG CAPSULE PO SCH ×2 (05:20→13:52)
[2017-02-12] MEDS: FLUTICASONE/SALMETEROL DISKUS 250-50 MCG/DOSE IH SCH (09:27)
[2017-02-12] MEDS: ZIPRASIDONE HCL 40 MG CAPSULE PO SCH (09:27)
[2017-02-12] MEDS: ASPIRIN 81 MG TABLET, ENT COATED PO SCH (09:27)
[2017-02-12] MEDS: CALCIUM CARBONATE 250 MG/VITAMIN D3 125 UNIT TABLET PO SCH ×2 (09:27→12:19)
[2017-02-12] MEDS: CARVEDILOL 6.25 MG TABLET PO SCH (09:27)
[2017-02-12] MEDS: LEVOTHYROXINE SODIUM 0.05 MG TABLET PO SCH (09:27)
[2017-02-12 09:28] LABS: ANION GAP 14 (5-19); BLOOD UREA NITROGEN 34 mg/dL (7-20); CALCIUM 9.7 mg/dL (8.4-10.2); CARBON DIOXIDE 31 mmol/L (22-30); CHLORIDE 100 mmol/L (98-107); CREATININE RESULT 1.12 mg/dL (0.52-1.25); GLUCOSE 140 mg/dL (75-110); POTASSIUM 4.3 mmol/L (3.6-5.0); SODIUM 145.2 mmol/L (137-145)
[2017-02-12] MEDS: CETIRIZINE 10 MG TABLET PO SCH (09:28)
[2017-02-12] MEDS: PRENATAL VITAMIN W-O CA NO5/FE FUMARATE/FA CAPSULE PO SCH (09:28)
[2017-02-12] MEDS: DIVALPROEX SODIUM 500 MG TAB.SR.24H PO SCH (09:28)
[2017-02-12] MEDS ORDERED: TRAMADOL HCL 50 MG TABLET PO ONE (11:30)
--- NOTE | 2017-02-12 14:51 | PDOC TRANSFER SUMMARY ---
General - Admit/Disc Date/PCP Admission Date/Primary Care Provider: 02/05/17 09:46 AGUSTO NYE MD Discharge Date: 02/12/17 - Discharge Diagnosis (1) Acute on chronic respiratory failure Is this a current diagnosis for this admission?: Yes (2) COPD exacerbation Is this a current diagnosis for this admission?: Yes (3) Psychosis Is this a current diagnosis for this admission?: Yes (4) Elevated troponin Is this a current diagnosis for this admission?: Yes (5) Hypertension Is this a current diagnosis for this admission?: Yes (6) Hypothyroidism Is this a current diagnosis for this admission?: Yes (7) Syncope Is this a current diagnosis for this admission?: Yes (8) Aortic stenosis Is this a current diagnosis for this admission?: Yes - Additional Information Resuscitation Status: Do Not Resuscitate - Portable DO NOT RESUSCITATE DO NOT INTUBATE Discharge Diet: Regular Discharge Activity: Activity As Tolerated, Supervised Activity Home Medications: Acetaminophen [Tylenol] 650 mg PO DAILYP PRN 02/05/17 Alprazolam [Xanax 0.25 mg Tablet] 0.25 mg PO Q8HP PRN 02/05/17 Aspirin [Ecotrin 81 mg EC Tablet] 81 mg PO DAILY 02/05/17 Calcium Carbonate/Vitamin D3 [Calcium 600-Vit D3 800 Tab] 1 tab PO MEALS Carvedilol [Coreg 6.25 mg Tablet] 6.25 mg PO Q12 02/05/17 Cetirizine HCl [Zyrtec 10 mg Tablet] 10 mg PO DAILY 02/05/17 Fluticasone/Salmeterol [Advair 250-50 Diskus 28 dose] 1 puff IH BID 02/05/17 Gabapentin [Neurontin 100 mg Capsule] 100 mg PO BID 02/05/17 Levothyroxine Sodium [Synthroid 0.05 mg Tablet] 0.05 mg PO QAM 02/05/17 Meclizine HCl [Antivert 25 mg Tablet] 25 mg PO TIDP PRN 02/05/17 Multivits-Min/Iron/FA/Lutein [Centrum Silver Women Tablet] 1 tab PO DAILY Umeclidinium [place] [Incruse Ellipta] 1 puff IH DAILY 02/05/17 Atorvastatin Calcium [Lipitor 20 mg Tablet] 20 mg PO QHS tablet 02/12/17 Divalproex Sodium [Depakote ER 500 mg Tab.sr] 500 mg PO Q12 tab.sr.24h Furosemide [Lasix] 40 mg PO DAILY #0 02/12/17 Levalbuterol HCl [Xopenex Neb 1.25 mg/3 ml Ampul] 1.25 mg NEB RTQ6HP PRN vial.neb 02/12/17 Methylprednisolone [Medrol 4 mg Tablet] 4 mg PO Q6 #20 tablet 02/12/17 Montelukast Sodium [Singulair 10 mg Tablet] 10 mg PO QHS tablet 02/12/17 Ziprasidone HCl [Geodon 40 mg Capsule] 40 mg PO QAM #30 capsule 02/12/17 Ziprasidone HCl [Geodon 40 mg Capsule] 80 mg PO QHS #60 capsule 02/12/17 History of Present Illness Admission Date/PCP: 02/05/17 09:46 AGUSTO NYE MD History of Present Illness: Ms. Escobar is a 76 year old female admitted via emergency department for syncope and respiratory distress. EMS reports that patient was found unconscious outside [facility] with a O2 saturation of 66%. Patient was placed on oxygen and is conscious in the room. Patient stated that she decided to be "mute" because people have told her that she talks too much and they tell her to "shut up." Patient denies falling and states she is aware. Patient complains that the nurse at the facility switched her glasses; she states the glasses she has are not hers because they are not her frames. Patient uses oxygen at [facility] as needed. Patient's PCP is Dr. Nye. Patient has a history of hypercapnic respiratory failure, bipolar disorder, depression, diabetes mellitus, hypertension, arthritis, COPD, and hypothyroidism. Patient was referred to the hospitalist for admission and management. My evaluation today the patient was found to be confused. On evaluation the patient was found to be delusional and history was unable to be fully obtained. On direct questioning patient however denied any chest pain, shortness of breath or any prior heart problems, sustained palpitations, syncope or near syncope. Patient was actually noted to be somewhat short of breath at rest with ongoing wheezing. Hospital Course Hospital Course: Patient was placed on oxygen and found to have acute COPD exacerbation. Patient 's underlying mental illness was exacerbated by steroids requiring the use of Geodon with some improvement. Patient's steroids were quickly tapered to oral methylprednisolone and patient was much improved today requesting discharge. For patient's psychosis/schizoaffective disorder, patient was transitioned to Geodon with good results. Patient's syncopal episode was likely felt to be due to her hypoxia and severe to critical aortic stenosis. Patient was also found to have an elevated troponin on presentation. This peaked at 0.155 and then trended down. This is felt to be likely secondary to cardiac strain from her underlying COPD exacerbation. Echocardiogram was performed patient was found to have critical aortic stenosis. At this time, still due to underlying kidney disease and mental illness that patient was not a good candidate for valve replacement. At this time I would ask that her primary care physician consult palliative care/hospice for this patient. Physical Exam Vital Signs: Temp Pulse Resp BP Pulse Ox 99.0 F 94 18 117/76 91 L 02/12/17 12:00 02/12/17 12:00 02/12/17 12:00 02/12/17 12:00 02/12/17 12:00 Intake & Output 02/11/17 02/12/17 02/13/17 06:59 06:59 06:59 Intake Total 1235 735 Balance 1235 735 Weight 63.2 kg 63.2 kg Exam: General: Awake alert and oriented x2, no acute respiratory distress HEENT: AT/NC, PERRL, EOMI, oropharynx is moist, pink, no scleral icterus, no conjunctival injection Neck: No JVD, trachea midline Chest: Clear to auscultation bilaterally CV: Regular rate and rhythm, normal S1 and S2, no rub or gallop; 4/6 sm best heard at the right upper sternal border with radiation to the carotids Abdomen: Soft, nontender to palpation, nondistended, active bowel sounds; no rebound, rigidity, or guarding Extremities: No cyanosis, clubbing or edema Neuro: Cranial nerves II through XII are grossly intact without focal deficits; awake alert and oriented x2 Psych: Pleasantly delusional Results Laboratory Results: 02/10/17 06:00 02/12/17 08:33 02/12/17 08:33 Sodium 145.2 H Potassium 4.3 Chloride 100 Carbon Dioxide 31 H Anion Gap 14 BUN 34 H Creatinine 1.12 Est GFR ( Amer) 57 L Est GFR (Non-Af Amer) 47 L Glucose 140 H Calcium 9.7 02/05/17 02/06/17 02/09/17 10:50 06:18 06:50 Troponin I 0.111 0.155 0.069 Impressions: Chest/Abdomen CTA 02/04/17 21:11 IMPRESSION: NO PULMONARY EMBOLI. Scattered subsegmental atelectasis. Left ventricular hypertrophy. Chest X-Ray 02/06/17 06:00 IMPRESSION: NO ACUTE RADIOGRAPHIC FINDING IN THE CHEST. Transfer Plan - Time Spent with Patient Time spent with patient: Less than 30 Minutes Qualifiers PATEINT BEING DISCHARGED WITH ANY OF THE FOLLOWING DIAGNOSIS?: No Plan Time Spent: Greater than 30 Minutes
[2017-02-12 16:39] VITALS: BP 135/50
--- NOTE | 2017-02-13 13:02 | PSYCHOLOGICAL NOTE ---
Psych Note - Psych Note Psych Note: The patient is belligerent, combative, with features of psychosis. The patient uses a large amount of profanity and has thrown her items of beaded jewelry at staff including myself. The patient is known to the hospitalist service and has displayed the exact behavior during previous admissions. Brief history: The patient is well known to the hospitalist service. The patient is a resident of the [facility] given her psychiatric history. The patient was brought into the emergency department as per previous records for being found hypoxic. According to these records the patient stated that she had decided to go "mute" because people complained that she talk to much. Patient is observed reading loudly repeating words or spelling words out. Patient is also wearing a napkin on her head. Patient was unwilling to engage with clinician's questions. Patient was only interested in "testifying" and doing everything "right." Patient is very labile in affect and appears to be behavioral. Patient is unwilling to answer orientation questions. Clinician notes patient is demonstrating flight of thought centering around alevism. Patient then disclosed that she the other day and stated she was residing her "last will and testament." And patient stated that she had a baby this morning and he does see her baby now. Patient states that she is made "paper and swathi which is not good." Clinician notes that at this time the patient was attempting to open up a packet of pepper. Impression plan: Patient is psychiatrically cleared for discharge. Patient appears to be at her baseline as noted by previous attending hospitalist. Dr. Brady was consulted on hearing management of this patient in my: Attending physician is in agreement with recommendations and disposition.
--- NOTE | 2017-02-13 13:04 | PSYCHOLOGICAL NOTE ---
Psych Note - Psych Note Psych Note: The patient is belligerent, combative, with features of psychosis. The patient uses a large amount of profanity and has thrown her items of beaded jewelry at staff including myself. The patient is known to the hospitalist service and has displayed the exact behavior during previous admissions. Brief history: The patient is well known to the hospitalist service. The patient is a resident of the [facility] given her psychiatric history. The patient was brought into the emergency department as per previous records for being found hypoxic. According to these records the patient stated that she had decided to go "mute" because people complained that she talk to much. Clinician conducted a check in. Patient still demonstrating irritable mood with labile affect. Patient through with to food tray on to bed and cereal box. Patient does not answer questions and continues to demonstrate flight of thought with mixed delusions. Impression plan: Patient is psychiatrically cleared for discharge. Patient appears to be at her baseline as noted by previous attending hospitalist. Dr. Brady was consulted on hearing management of this patient in my: Attending physician is in agreement with recommendations and disposition.
--- NOTE | 2017-02-13 13:06 | PSYCHOLOGICAL NOTE ---
Psych Note - Psych Note Psych Note: The patient is belligerent, combative, with features of psychosis. The patient uses a large amount of profanity and has thrown her items of beaded jewelry at staff including myself. The patient is known to the hospitalist service and has displayed the exact behavior during previous admissions. Brief history: The patient is well known to the hospitalist service. The patient is a resident of the [facility] given her psychiatric history. The patient was brought into the emergency department as per previous records for being found hypoxic. According to these records the patient stated that she had decided to go "mute" because people complained that she talk to much. Clinician conducted a chart review, no changes in the patient's behaviour noted. Impression plan: Patient is psychiatrically cleared for discharge. Patient appears to be at her baseline as noted by previous attending hospitalist. Dr. Brady was consulted on hearing management of this patient in my: Attending physician is in agreement with recommendations and disposition.
== END 2017-02-12 18:10 | disposition home health service (06) | DRG 189 ==
LOC: ER 18:16 → EH 02-05 08:19 → UNDOADMIN 02-05 08:19 → EH 02-05 09:46 → 4W 02-05 11:04 → 4S 02-06 06:22
DX: J96.21 Acute and chronic respiratory failure with hypoxia (principal); J44.1 Chronic obstructive pulmonary disease with (acute) exacerbation; J96.22 Acute and chronic respiratory failure with hypercapnia; Z66 Do not resuscitate; E03.9 Hypothyroidism, unspecified; E11.22 Type 2 diabetes mellitus with diabetic chronic kidney disease; I12.9 Hypertensive chronic kidney disease with stage 1 through stage 4 chronic kidney disease, or unspecified chronic kidney disease; N18.3 Chronic kidney disease, stage 3 (moderate); I35.0 Nonrheumatic aortic (valve) stenosis; M19.90 Unspecified osteoarthritis, unspecified site; F31.9 Bipolar disorder, unspecified; R55 Syncope and collapse; R77.8 Other specified abnormalities of plasma proteins; F25.9 Schizoaffective disorder, unspecified; Z79.82 Long term (current) use of aspirin; Z79.51 Long term (current) use of inhaled steroids; Z79.899 Other long term (current) drug therapy; Z88.5 Allergy status to narcotic agent; Z88.3 Allergy status to other anti-infective agents; Z88.1 Allergy status to other antibiotic agents; Z88.8 Allergy status to other drugs, medicaments and biological substances
CPT/HCPCS: 36415; 71010; 71020; 71275; 80048; 80053; 80061; 81001; 82803; 83735; 83880; 84484; 85025; 85027; 93005; 93010; 93306; 94640; 96365; 96366; 96375; 99285; J2920; J2930; J3475; J3486; J3490; J7030; J7509

== ENCOUNTER 2017-02-14 21:34 | Inpatient (IN) | payer MEDICARE, MEDICAID ==
[2017-02-14] MEDS ORDERED: LEVALBUTEROL HCL NEB 1.25 MG/3 ML AMPUL NEB ONE (23:03)
[2017-02-14] MEDS ORDERED: ZIPRASIDONE MESYLATE INJ/PF 20 MG SDV IM ONE (23:03)
[2017-02-14] MEDS ORDERED: IPRATROPIUM BROMIDE 0.02% NEB 0.5 MG/2.5 ML AMPUL NEB PRN (23:04)
--- NOTE | 2017-02-15 00:04 | ER Document Report ---
ED General - General Chief Complaint: Altered Mental Status Stated Complaint: ALTERED MENTAL STATUS Mode of Arrival: Medic TRAVEL OUTSIDE OF THE [place] IN LAST 30 DAYS: No - HPI Notes: Patient is a 76-year-old female just discharged out of the hospital this past week with COPD exacerbation, psychosis with bipolar disorder and dementia with acute psychosis thought secondary partially to recent steroid use, severe aortic stenosis with chronic hypercarbia who is still smoking who was [facility] with recommendation for hospice care versus palliative care referral for her primary care practitioner. Patient presents now with report from the jail that she has been belligerent with staff members and inappropriate. The patient was hard to arouse until EMS showed up and then without any other provocation she awakened without much difficulty. EMS found O2 sats of 69% on room air and patient improved with 4 L of oxygen up to 98% and was cursing at EMS staff and hospital staff upon arrival. Blood sugar 233. Patient has oxygen for use at the jail 2 L, but she refuses to use it. Patient denies any suicidality or homicidality, but she does have some hallucinations and responds to some internal stimuli with her flight of ideas. The patient has not taken her 80 mg of Geodon this evening. On questioning, the patient denies any chest pain, dyspnea, fever, abdominal pain. No headache or head injury. - Related Data Allergies/Adverse Reactions: formaldehyde [Formaldehyde] Allergy (Mild, Verified 09/17/13 12:41) Hives cephalexin monohydrate [From Keflex] Allergy (Unknown, Verified 09/17/13 12:41) Hives haloperidol [Haloperidol] Allergy (Unknown, Verified 09/17/13 12:41) stiff neck albuterol [Albuterol] Allergy (Verified 09/17/13 12:41) trembling betaxolol HCl [From Betoptic S] Allergy (Verified 09/17/13 12:41) interferred with copd meds chlorpromazine HCl [From Thorazine] Allergy (Verified 09/17/13 12:41) jittery indomethacin [From Indocin] Allergy (Verified 09/17/13 12:41) meperidine HCl [From Demerol] Allergy (Verified 09/17/13 12:41) morphine [Morphine] Allergy (Verified 09/17/13 12:41) prednisone [Prednisone] Allergy (Verified 09/17/13 12:41) quinine [Quinine] Allergy (Verified 09/17/13 12:41) stiff neck 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 hydrocarbons Allergy (Uncoded 09/17/13 12:41) intensifies her senses thistle Allergy (Uncoded 09/17/13 12:41) itching Past Medical History - Social History Smoking Status: Current Every Day Smoker Frequency of alcohol use: None Drug Abuse: None Lives with: Assisted Family History: None - Past Medical History Cardiac Medical History: Reports: Hx Hypertension Pulmonary Medical History: Reports: Hx COPD Denies: Hx Tuberculosis Endocrine Medical History: Reports: Hx Diabetes Mellitus Type 2, Hx Hypothyroidism Musculoskeltal Medical History: Reports Hx Arthritis Psychiatric Medical History: Reports: Hx Bipolar Disorder - With psychosis, Hx Depression Past Surgical History: Reports: Hx Appendectomy, Hx Cholecystectomy, Hx Herniorrhaphy - UMBILICAL, Hx Hysterectomy - Immunizations Hx Diphtheria, Pertussis, Tetanus Vaccination: Yes Hx Pneumococcal Vaccination: 11/15/08 Review of Systems - Review of Systems Notes: REVIEW OF SYSTEMS: CONSTITUTIONAL : Denies fever, chills, or sweats. Denies recent illness. EENT: Denies eye, ear, throat, or mouth pain or symptoms. Denies nasal or sinus congestion or discharge. Denies throat, tongue, or mouth swelling or difficulty swallowing. CARDIOVASCULAR: Denies chest pain. Denies palpitations or racing or irregular heart beat. Denies ankle edema. RESPIRATORY: Denies cough, cold, or chest congestion. Denies shortness of breath, difficulty breathing. History of chronic wheezing.. GASTROINTESTINAL: Denies abdominal pain or distention. Denies nausea, vomiting , or diarrhea. Denies blood in vomitus, stools, or per rectum. Denies black, tarry stools. Denies constipation. GENITOURINARY: Denies difficulty urinating, painful urination, burning, frequency, blood in urine, or discharge. FEMALE GENITOURINARY: Denies vaginal bleeding, heavy or abnormal periods, irregular periods. Denies vaginal discharge or odor. MUSCULOSKELETAL: Denies back or neck pain or stiffness. Denies joint pain or swelling. SKIN: Denies rash, lesions or sores. HEMATOLOGIC : Denies easy bruising or bleeding. LYMPHATIC: Denies swollen, enlarged glands. NEUROLOGICAL: Denies passing out or loss of consciousness. Denies dizziness or lightheadedness. Denies headache. Denies weakness or paralysis or loss of use of either side. Denies problems with gait or speech. Denies sensory loss, numbness, or tingling. Denies seizures. PSYCHIATRIC: Denies depression, suicidal ideation, or homicidal ideation. ALL OTHER SYSTEMS REVIEWED AND NEGATIVE. Dictation was performed using [employer] voice recognition software Physical Exam - Vital signs Vitals: Resp Pulse Ox 25 H 98 02/14/17 21:42 02/14/17 21:42 - Notes Notes: PHYSICAL EXAMINATION: GENERAL: well-nourished and in no acute distress. Obvious smell of urine noted. HEAD: Atraumatic, normocephalic. EYES: Pupils equal round and reactive to light, extraocular movements intact, conjunctiva are normal. ENT: Nares patent, oropharynx clear without exudates. Moist mucous membranes. NECK: Normal range of motion, supple without lymphadenopathy LUNGS: Coarse breath sounds with some anterior wheezing. No accessory muscle use or retractions. HEART: Regular rate and rhythm without gallop or rub. There is a 1/6 systolic ejection murmur best auscultated over the apex. ABDOMEN: Soft, nontender, nondistended abdomen. No guarding, no rebound. No masses appreciated. Female : deferred Musculoskeletal: Normal range of motion, no pitting or edema. No cyanosis. NEUROLOGICAL: Cranial nerves grossly intact. Normal speech. Normal sensory, motor exams. Patient asked for my full name once, and was able to remember it continuously. PSYCH: Patient seems to finish her sentences with flight of ideas. She is belligerent with staff and noncooperative. SKIN: Warm, Dry, normal turgor, no rashes or lesions noted. Course - Re-evaluation Re-evalutation: 02/15/17 00:16 Patient initially refused nebulizer treatment. She refused to provide a urine specimen. Given that the patient had not received her Geodon dose of 80 mg this evening, patient was given 20 mg IM. On repeat exam at 12:15 AM, the patient was still belligerent and inappropriate with staff. The patient was given 2 mg of IM Ativan just to allow a blood draw , EKG and further evaluation. There is concern about over sedating the patient given her tendency for hypercarbia. However, based upon the previous evaluation upon her discharge his past week with suggestion for hospice versus palliative care, and the patient's current DO NOT RESUSCITATE status, I have no choice but to provide additional sedative so that we can further evaluate the patient. Patient is kept up on her home oxygen 2 L. 02/15/17 03:18 02/15/17 05:17 Patient was hypercarbic on blood gas after receiving the Geodon and Ativan, but PCO2 level of 76 is similar to a previous PCO2 level of 71 that she has had in the past. EKG was showing no ischemia, but troponin markedly elevated at 9. Question a non-STEMI. However patient has no chest pain or obvious dyspnea. Patient is already on aspirin. Call was made to the jail which refused to take the patient back due to her periodic agitation and noncompliance. Per previous note and per review of patient's history and current findings, patient needs palliative care versus hospice. Phone calls were made to next of kin Tito Mcgraw, no answer. A message was left at [phone]. Another phone call made to next of kin Kapil Mcgraw at [phone] and a message left. Discussion was undertaken with hospitalist Dr. Rosendo Arizmendi and he agreed to admit the patient for further evaluation and management. Critical care time not counting billable procedures is 58 minutes. - Vital Signs Vital signs: Temp Pulse Resp BP Pulse Ox 16 143/59 H 96 02/15/17 04:36 02/15/17 04:36 02/15/17 04:36 - Laboratory Result Diagrams: 02/15/17 01:15 02/15/17 01:15 Laboratory results interpreted by me: 02/15/17 02/15/17 02/15/17 01:15 01:15 01:15 WBC 13.4 H Hgb 11.6 L Hct 35.0 L Seg Neutrophils % 83.0 H Lymphocytes % 7.1 L Absolute Neutrophils 11.1 H Carbonic Acid ABG pH ABG pCO2 ABG pO2 ABG HCO3 ABG Total CO2 ABG O2 Saturation Potassium 5.3 H BUN 45 H Est GFR ( Amer) 56 L Est GFR (Non-Af Amer) 46 L Glucose 147 H AST 51 H NT-Pro-B Natriuret Pep 98632 H Total Protein 5.9 L Albumin 3.2 L TSH Urine Nitrite Ur Leukocyte Esterase Valproic Acid 31.3 L 02/15/17 02/15/17 02/15/17 01:15 04:04 04:35 WBC Hgb Hct Seg Neutrophils % Lymphocytes % Absolute Neutrophils Carbonic Acid 2.31 H ABG pH 7.29 L ABG pCO2 76.6 H* ABG pO2 62.1 L ABG HCO3 36.3 H ABG Total CO2 38.6 H ABG O2 Saturation 88.1 L Potassium BUN Est GFR ( Amer) Est GFR (Non-Af Amer) Glucose AST NT-Pro-B Natriuret Pep Total Protein Albumin TSH 0.40 L Urine Nitrite POSITIVE H Ur Leukocyte Esterase MODERATE H Valproic Acid - EKG Interpretation by Me EKG shows normal: Sinus rhythm Additional EKG results interpreted by me: 02/15/17 03:06 EKG is interpreted by me showed normal sinus rhythm a rate of 89. There is no gross evidence for acute [place] or ischemia identified. There is no significant change from previous EKG reviewed from 02/10/17. Critical Care Note - Critical Care Note Total time excluding time spent on procedures (mins): 58 Discharge - Discharge Clinical Impression: Agitation, Non-STEMI (non-ST elevated myocardial infarction), Hypercarbia COPD (chronic obstructive pulmonary disease) Qualifiers: COPD type: unspecified COPD Qualified Code(s): J44.9 - Chronic obstructive pulmonary disease, unspecified Urinary tract infection Qualifiers: Urinary tract infection type: acute cystitis Hematuria presence: without hematuria Qualified Code(s): N30.00 - Acute cystitis without hematuria Psychosis Qualifiers: Psychosis type: delusional disorder Qualified Code(s): F22 - Delusional disorders Condition: Fair Disposition: ADMITTED INPATIENT Admitting Provider: Hospitalist Unit Admitted: [facility]
[2017-02-15] MEDS ORDERED: LORAZEPAM INJ 2 MG/1 ML VIAL IM ONE (00:11)
[2017-02-15 01:36] LABS: ABSOLUTE LYMPHOCYTES (AUTO) 0.9 10^3/uL (0.5-4.7); ABSOLUTE MONOCYTES (AUTO) 1.3 10^3/uL (0.1-1.4); ABSOLUTE NEUT (AUTO) 11.1 10^3/uL (1.7-8.2); BASOPHILS % (AUTO) 0.3 % (0-2); EOSINOPHILS % (AUTO) 0.1 % (0-6); HEMOGLOBIN 11.6 g/dL (12.0-15.5); HGB HCT DIFFERENCE -0.2; LYMPHOCYTES % (AUTO) 7.1 % (13-45); MEAN CORPUSCULAR HEMOGLOBIN 30.7 pg (27.0-33.4); MEAN CORPUSCULAR HGB CONC 33.2 g/dL (32.0-36.0); MEAN CORPUSCULAR VOLUME 92 fl (80-97); MONOCYTES % (AUTO) 9.5 % (3-13); RED CELL DISTRIBUTION WIDTH 12.5 % (11.5-14.0); WHITE BLOOD COUNT 13.4 10^3/uL (4.0-10.5)
[2017-02-15 01:52] LABS: ALANINE AMINOTRANSFERASE 32 U/L (9-52); ALBUMIN 3.2 g/dL (3.5-5.0); ALKALINE PHOSPHATASE 65 U/L (38-126); ANION GAP 11 (5-19); ASPARTATE AMINO TRANSFERASE 51 U/L (14-36); BILIRUBIN,DIRECT 0.3 mg/dL (0.0-0.4); BILIRUBIN,TOTAL 0.5 mg/dL (0.2-1.3); BLOOD UREA NITROGEN 45 mg/dL (7-20); CARBON DIOXIDE 29 mmol/L (22-30); CHLORIDE 99 mmol/L (98-107); CREATININE RESULT 1.15 mg/dL (0.52-1.25); GLUCOSE 147 mg/dL (75-110); POTASSIUM 5.3 mmol/L (3.6-5.0); SODIUM 138.5 mmol/L (137-145); TOTAL PROTEIN 5.9 g/dL (6.3-8.2)
[2017-02-15 02:01] LABS: VALPROIC ACID 31.3 ug/mL (50.0-120.0)
[2017-02-15 02:20] LABS: TROPONIN I 9.62 ng/mL
[2017-02-15 02:31] LABS: THYROID STIMULATING HORMONE 0.4 uIU/mL (0.47-4.68)
[2017-02-15 04:23] LABS: ARTERIAL BLOOD BASE EXCESS 7.1 mmol/L; ARTERIAL BLOOD O2 SATURATION 88.1 % (94-98)
[2017-02-15 04:57] LABS: APPEARANCE,URINE SLIGHTLY-CLOUDY; BILIRUBIN,URINE NEGATIVE (NEGATIVE); GLUCOSE, URINE NEGATIVE (NEGATIVE); KETONES,URINE NEGATIVE (NEGATIVE); LEUKOCYTE ESTERASE,URINE MODERATE (NEGATIVE); NITRITE,URINE POSITIVE (NEGATIVE); PROTEIN,URINE NEGATIVE (NEGATIVE); URINE SPECIFIC GRAVITY 1.005; UROBILINOGEN,URINE NEGATIVE mg/dL (<2.0)
[2017-02-15] MEDS ORDERED: ACETAMINOPHEN 325 MG TABLET PO PRN (05:20)
[2017-02-15] MEDS ORDERED: LORAZEPAM INJ 2 MG/1 ML VIAL IV PRN (05:20)
[2017-02-15] MEDS ORDERED: MORPHINE SULFATE 10 MG/ML INJ IV PRN ×2 (05:20→16:30)
[2017-02-15] MEDS ORDERED: CIPROFLOXACIN 400 MG/D5W RTU 200 ML IV ONE (05:23)
[2017-02-15] MEDS ORDERED: FENTANYL 12 MCG/HR PATCH.TD72 TD ONE (05:31)
--- NOTE | 2017-02-15 05:45 | PDOC H&P ---
History of Present Illness Admission Date/PCP: SNEHA CADE MD Patient complains of: Encephalopathy History of Present Illness: CARMELO CORONEL is a 76 year old female with an extensive past medical history including COPD, acute on chronic her story failure, bipolar with psychosis recurrent syncope and critical aortic stenosis. Who is discharged from the hospital last week for COPD exacerbation, complicated by the above and referred for palliative care versus hospice with unclear determination. She is noted by [facility] staff to be belligerent and combative refusing medications and treatment she's brought to the emergency room for evaluation where she's found to have positive cardiac enzymes, moderate hypercapnia with persistent delirium and aggressive behavior she receives sedation in the emergency room is referred to the hospitalist for admission. 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 Denies: Anemia, Sickle Cell Disease Past Surgical History Past Surgical History: Reports: Appendectomy, Cholecystectomy, Herniorrhaphy - UMBILICAL, Hysterectomy Denies: Amputation Social History Information Source: [facility] Records Lives with: Long Term Smoking Status: Current Every Day Smoker Frequency of Alcohol Use: None Hx Recreational Drug Use: No Drugs: None Hx Prescription Drug Abuse: No - Advance Directive Resuscitation Status: Do Not Resuscitate Family History Family History: None, Other - Unobtainable Parental Family History Reviewed: Yes Children Family History Reviewed: Unknown Sibling(s) Family History Reviewed.: Unknown Medication/Allergy Home Medications: Acetaminophen [Tylenol] 650 mg PO DAILYP PRN 02/05/17 Alprazolam [Xanax 0.25 mg Tablet] 0.25 mg PO Q8HP PRN 02/05/17 Aspirin [Ecotrin 81 mg EC Tablet] 81 mg PO DAILY 02/05/17 Calcium Carbonate/Vitamin D3 [Calcium 600-Vit D3 800 Tab] 1 tab PO MEALS Carvedilol [Coreg 6.25 mg Tablet] 6.25 mg PO Q12 02/05/17 Cetirizine HCl [Zyrtec 10 mg Tablet] 10 mg PO DAILY 02/05/17 Fluticasone/Salmeterol [Advair 250-50 Diskus 28 dose] 1 puff IH BID 02/05/17 Gabapentin [Neurontin 100 mg Capsule] 100 mg PO BID 02/05/17 Levothyroxine Sodium [Synthroid 0.05 mg Tablet] 0.05 mg PO QAM 02/05/17 Meclizine HCl [Antivert 25 mg Tablet] 25 mg PO TIDP PRN 02/05/17 Multivits-Min/Iron/FA/Lutein [Centrum Silver Women Tablet] 1 tab PO DAILY Umeclidinium [place] [Incruse Ellipta] 1 puff IH DAILY 02/05/17 Atorvastatin Calcium [Lipitor 20 mg Tablet] 20 mg PO QHS tablet 02/12/17 Divalproex Sodium [Depakote ER 500 mg Tab.sr] 500 mg PO Q12 tab.sr.24h Furosemide [Lasix] 40 mg PO DAILY #0 02/12/17 Levalbuterol HCl [Xopenex Neb 1.25 mg/3 ml Ampul] 1.25 mg NEB RTQ6HP PRN vial.neb 02/12/17 Methylprednisolone [Medrol 4 mg Tablet] 4 mg PO Q6 #20 tablet 02/12/17 Montelukast Sodium [Singulair 10 mg Tablet] 10 mg PO QHS tablet 02/12/17 Ziprasidone HCl [Geodon 40 mg Capsule] 40 mg PO QAM #30 capsule 02/12/17 Ziprasidone HCl [Geodon 40 mg Capsule] 80 mg PO QHS #60 capsule 02/12/17 Allergies/Adverse Reactions: formaldehyde [Formaldehyde] Allergy (Mild, Verified 09/17/13 12:41) Hives cephalexin monohydrate [From Keflex] Allergy (Unknown, Verified 09/17/13 12:41) Hives haloperidol [Haloperidol] Allergy (Unknown, Verified 09/17/13 12:41) stiff neck albuterol [Albuterol] Allergy (Verified 09/17/13 12:41) trembling betaxolol HCl [From Betoptic S] Allergy (Verified 09/17/13 12:41) interferred with copd meds chlorpromazine HCl [From Thorazine] Allergy (Verified 09/17/13 12:41) jittery indomethacin [From Indocin] Allergy (Verified 09/17/13 12:41) meperidine HCl [From Demerol] Allergy (Verified 09/17/13 12:41) morphine [Morphine] Allergy (Verified 09/17/13 12:41) prednisone [Prednisone] Allergy (Verified 09/17/13 12:41) quinine [Quinine] Allergy (Verified 09/17/13 12:41) stiff neck 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 hydrocarbons Allergy (Uncoded 09/17/13 12:41) intensifies her senses thistle Allergy (Uncoded 09/17/13 12:41) itching Review of Systems ROS unobtainable: Due to mental status Physical Exam Vital Signs: Temp Pulse Resp BP Pulse Ox 16 143/59 H 96 02/15/17 04:36 02/15/17 04:36 02/15/17 04:36 General appearance: PRESENT: disheveled, mild distress. ABSENT: cooperative Head exam: PRESENT: atraumatic, normocephalic Eye exam: PRESENT: conjunctiva pink, EOMI, PERRLA. ABSENT: scleral icterus Ear exam: PRESENT: normal external ear exam Mouth exam: PRESENT: moist, tongue midline Neck exam: ABSENT: carotid bruit, JVD, lymphadenopathy, thyromegaly Respiratory exam: PRESENT: crackles, decreased breath sounds, symmetrical, tachypnea Cardiovascular exam: PRESENT: diastolic murmur, RRR, rubs, +S2, systolic murmur , other - 3/6 systolic ejection murmur in all cross Pulses: PRESENT: normal dorsalis pedis pul Vascular exam: PRESENT: normal capillary refill GI/Abdominal exam: PRESENT: normal bowel sounds, soft. ABSENT: distended, guarding, mass, organolmegaly, rebound, tenderness Rectal exam: PRESENT: deferred Extremities exam: PRESENT: full ROM. ABSENT: calf tenderness, clubbing, pedal edema Neurological exam: PRESENT: altered, other - Sedated Psychiatric exam: PRESENT: agitated Skin exam: PRESENT: dry, intact, warm. ABSENT: cyanosis, rash Results Laboratory Results: 02/15/17 01:15 02/15/17 01:15 02/15/17 02/15/17 02/15/17 01:15 01:15 01:15 WBC 13.4 H RBC 3.80 Hgb 11.6 L Hct 35.0 L MCV 92 MCH 30.7 MCHC 33.2 RDW 12.5 Plt Count 169 Seg Neutrophils % 83.0 H Lymphocytes % 7.1 L Monocytes % 9.5 Eosinophils % 0.1 Basophils % 0.3 Absolute Neutrophils 11.1 H Absolute Lymphocytes 0.9 Absolute Monocytes 1.3 Absolute Eosinophils 0.0 Absolute Basophils 0.0 Carbonic Acid HCO3/H2CO3 Ratio ABG pH ABG pCO2 ABG pO2 ABG HCO3 ABG O2 Saturation ABG Base Excess FiO2 Sodium 138.5 Potassium 5.3 H Chloride 99 Carbon Dioxide 29 Anion Gap 11 BUN 45 H Creatinine 1.15 Est GFR ( Amer) 56 L Est GFR (Non-Af Amer) 46 L Glucose 147 H Calcium 10.0 Magnesium 2.0 Total Bilirubin 0.5 AST 51 H ALT 32 Alkaline Phosphatase 65 Total Protein 5.9 L Albumin 3.2 L TSH 0.40 L Free T4 1.80 Urine Color Urine Appearance Urine pH Ur Specific [place] Urine Protein Urine Glucose (UA) Urine Ketones Urine Blood Urine Nitrite Ur Leukocyte Esterase Urine WBC (Auto) Urine RBC (Auto) 02/15/17 02/15/17 02/15/17 03:20 04:04 04:35 WBC RBC Hgb Hct MCV MCH MCHC RDW Plt Count Seg Neutrophils % Lymphocytes % Monocytes % Eosinophils % Basophils % Absolute Neutrophils Absolute Lymphocytes Absolute Monocytes Absolute Eosinophils Absolute Basophils Carbonic Acid Cancelled 2.31 H HCO3/H2CO3 Ratio Cancelled 15:1 ABG pH Cancelled 7.29 L ABG pCO2 Cancelled 76.6 H* ABG pO2 Cancelled 62.1 L ABG HCO3 Cancelled 36.3 H ABG O2 Saturation Cancelled 88.1 L ABG Base Excess Cancelled 7.1 FiO2 Cancelled 28% Sodium Potassium Chloride Carbon Dioxide Anion Gap BUN Creatinine Est GFR ( Amer) Est GFR (Non-Af Amer) Glucose Calcium Magnesium Total Bilirubin AST ALT Alkaline Phosphatase Total Protein Albumin TSH Free T4 Urine Color YELLOW Urine Appearance SLIGHTLY-CLOUDY Urine pH 5.0 Ur Specific [place] 1.005 Urine Protein NEGATIVE Urine Glucose (UA) NEGATIVE Urine Ketones NEGATIVE Urine Blood NEGATIVE Urine Nitrite POSITIVE H Ur Leukocyte Esterase MODERATE H Urine WBC (Auto) 18 Urine RBC (Auto) 1 02/15/17 01:15 Troponin I 9.620 NT-Pro-B Natriuret Pep 41344 H Impressions: Chest X-Ray 02/14/17 23:02 IMPRESSION: No acute radiographic finding in the chest. Assessment & Plan - Diagnosis (1) Aortic stenosis Qualifiers: Cardiac valve disease etiology: etiology unspecified Qualified Code( s): I35.0 - Nonrheumatic aortic (valve) stenosis Is this a current diagnosis for this admission?: YesPlan: Critical aortic stenosis not a candidate for surgery given comorbidity of chronic lung disease ongoing tobacco and severe uncompensated bipolar disorder with psychosis. Strongly suggest initiating comfort measures only as unable to correct underlying cause and troponin is significantly elevated (2) COPD exacerbation Is this a current diagnosis for this admission?: YesPlan: Symptomatically management, oxygen and tobacco avoidance (3) Psychosis Qualifiers: Psychosis type: delusional disorder Qualified Code(s): F22 - Delusional disorders Is this a current diagnosis for this admission?: YesPlan: Geodon versus Abilify and benzodiazepine when necessary - Time Time Spent: 30 to 50 Minutes
[2017-02-15] MEDS ORDERED: HEPARIN SOD (PORCINE) 5,000 UNIT/ML 1 ML SYRINGE SUBCUT SCH (06:00)
[2017-02-15] MEDS ORDERED: ARIPIPRAZOLE 5 MG TABLET PO SCH (10:00)
[2017-02-15] MEDS ORDERED: DIVALPROEX SODIUM 500 MG TAB.SR.24H PO SCH (10:00)
[2017-02-15] MEDS ORDERED: ASPIRIN 81 MG TABLET, ENT COATED PO SCH (10:00)
[2017-02-15] MEDS ORDERED: CARVEDILOL 6.25 MG TABLET PO SCH (10:00)
[2017-02-15] MEDS ORDERED: GABAPENTIN 100 MG CAPSULE PO SCH (10:00)
[2017-02-15] MEDS ORDERED: NORMAL SALINE 1000 ML 1,000 ML IV ONE (11:19)
[2017-02-15] MEDS ORDERED: NORMAL SALINE 1000 ML 1,000 ML IV PRN (11:19)
[2017-02-15] MEDS ORDERED: ASPIRIN 81 MG TABLET, CHEWABLE PO ONE (11:30)
[2017-02-15] MEDS ORDERED: ZIPRASIDONE HCL 40 MG CAPSULE PO ONE (11:30)
--- NOTE | 2017-02-15 12:51 | EKG REPORT ---
SEVERITY:- NORMAL ECG - SINUS RHYTHM : Confirmed by: Mely Reyna MD 15-Feb-2017 12:50:16
--- NOTE | 2017-02-15 13:58 | Physician Advisory Note ---
Physician Advisor ProgressNote .: [facility] I have reviewed the medical record for this patient. Physician Advisor Statement: Possible documentation opportunities if attending agrees: 1. "SIRS, present on admission, likely due to " [acute NSTEMI due to hypoxemia due to #2 due to agitation/noncompliance w/O2? or ?] 2. "chronic hypercarbic & hypoxemic respiratory failure requiring 2L O2 at baseline" - Pt needs O2 2L @SNF but refuses to use it, sat 70% RA for EMS 3. "chronic opioid dependence" [on Duragesic] 4. "Principal Dx" - please list as #1 the principal reason for which pt required adm 5. ? - "acute NSTEMI" or "acute ischemic heart dz" 6. ? - "acute UTI" - given cipro in ED - ?any since? As always, if concerned about any unstable VS or abnormal labs, please comment on them & note what doing about them, & please document each day the potential clinical problems you are concerned could occur if pt not kept in hospital for tx at this time. Discussion: 76yo female w/ chronic co-morbidities including critical aortic stenosis (not surgical candidate due to co-morbidities, already DNR & supposed to be considered for palliative care as of last adm), HTN, dementia, bipolar depresssion, psychosis, COPD w/chronic hypercarbia & hypoxemia (chr resp failrue ), DM-2, ongoing tobacco dependency/use - presented 4/2 PM to ED w/agitation, acting out, wheezing, hypoxemia of 70% RA (not keeping O2 on at SNF) (+) initial HR104, RR25, BP 153/69, WBC 13.4, Hgb 11.6, K 5.3, trop I 9.6, BNP 17,700, O2 sat on ABG 88.1% on 28% FiO2 (=P/F ratio of 193), U/A (+). ED gave Geodon 20mg IM, Ativan 2mg IM, & then Ativan 2mg IV in order to just get labs drawn, IV cipro, Xopanex neb, ordered ur cx. Attending ordered morphine 5mg q4h prn, Duragesic, ASA, O2 2L, q4h VS, f/u trop Is, tele, I/Os, Ativan IV q2h prn. Status: Pt with agitation/psychosis/noncompliance leading to severe hypoxemia, likely causing acute cardiac event (vs acute cardiac event causing worsened agitation leading to more noncompliance/hypoxemia & therefore worse agitation). Has been treated in hospital x 1MN already. Has continued agitation issues, persistent tachycardia & tachypnea. Today's attending has ordered NOW dose Geodon at 11:30 , NS bolus then 125ml/hr, Geodon 80mg qhs, cradiologist consult. Batch Roller Operator has ordered high dose Lipitor, Ranexa, ECHO, EKG. Pt is clearly not going to be sufficiently stable for d/c before at least 2MNs of care in hospital, and will likely require longer than that to become stabilized medically. Tx in inpatient hospital setting medically reasonable & necessary to protect pt' s health, safety, & medical condition, as well as the safety of her caregivers. Appropriate for Inpt status. Thanks for your help with documentation accuracy/specificity improvement! Shalini John MD [facility] Physician Advisor, Fellow of Hospital Medicine
[2017-02-15] MEDS ORDERED: FONDAPARINUX SODIUM INJ 2.5 MG/0.5 ML DISP.SYRIN SUBCUT ONE (14:00)
[2017-02-15] MEDS ORDERED: METOPROLOL SUCCINATE 25 MG TAB.SR.24H PO ONE (14:00)
[2017-02-15] MEDS ORDERED: SCOPOLAMINE HYDROBROMIDE 1.5 MG PATCH.TD72 TD ONE (16:30)
[2017-02-15] MEDS ORDERED: FENTANYL 25 MCG/HR PATCH.TD72 TD ONE (16:30)
[2017-02-15] MEDS: LORAZEPAM INJ 2 MG/1 ML VIAL IV PRN (16:36)
[2017-02-15] MEDS: ATROPINE SULFATE 1% OPH SOLN 5 ML BOTTLE SL SCH ×2 (17:23→23:20)
[2017-02-15] MEDS ORDERED: (PENDING PHARMACY ID) (Brinzolamide [Azopt] 1 DROP) OU SCH (18:00)
--- NOTE | 2017-02-15 18:16 | PDOC PROGRESS REPORT ---
Subjective Progress Note for:: 02/15/17 Subjective:: Patient is obtunded and I'm unable to obtain review of systems from her. Physical Exam Vital Signs: Temp Pulse Resp BP Pulse Ox 21 H 123/79 96 02/15/17 07:01 02/15/17 07:01 02/15/17 07:01 Exam: General: Obtunded with labored breathing Neck: + JVD, trachea midline Chest: Bilateral rales, prolonged expiratory phase, occasional wheeze CV: Normal S1, S2; +4/6 systolic ejection murmur best heard at right upper sternal border with radiation to carotids bilaterally Abdomen: Soft, nontender to palpation, nondistended, active bowel sounds; no rebound, rigidity, or guarding Extremities: No cyanosis; +clubbing; trace edema Results Impressions: Chest X-Ray 02/14/17 23:02 IMPRESSION: No acute radiographic finding in the chest. Assessment & Plan - Diagnosis (1) Non-STEMI (non-ST elevated myocardial infarction) Is this a current diagnosis for this admission?: YesPlan: Patient currently admitted for non-ST segment myocardial infarction with troponin last checked of 14.6 and 9.62 on admission. Patient has had a significant myocardial infarction. Unfortunately, patient was hypotensive earlier unable to give her beta blockers or ROSCOE inhibitor was at this time. 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 Have consulted cardiology and appreciate their input into this case. Patient has critical aortic stenosis. Discussion with patient's family reveals that they do not want to pursue aggressive treatment for that her mother and are amenable to transitioning her to comfort measures. If patient continues to persist she will likely be transferred to an inpatient hospice facility within the next several days. She is a DO NOT RESUSCITATE. Comfort measures have been placed and initiated for this patient. (2) Acute respiratory acidosis Is this a current diagnosis for this admission?: Yes (3) Anemia Qualifiers: Anemia type: unspecified type Qualified Code(s): D64.9 - Anemia, unspecified Is this a current diagnosis for this admission?: Yes (4) Hyperkalemia Is this a current diagnosis for this admission?: Yes (5) SIRS (systemic inflammatory response syndrome) Is this a current diagnosis for this admission?: YesPlan: Secondary to acute [place] (6) Acute on chronic respiratory failure Qualifiers: Respiratory failure complication: hypoxia and hypercapnia Qualified Code(s): J96.21 - Acute and chronic respiratory failure with hypoxia Is this a current diagnosis for this admission?: Yes (7) COPD (chronic obstructive pulmonary disease) Qualifiers: COPD type: unspecified COPD Qualified Code(s): J44.9 - Chronic obstructive pulmonary disease, unspecified Is this a current diagnosis for this admission?: Yes (8) Urinary tract infection Qualifiers: Urinary tract infection type: acute cystitis Hematuria presence: without hematuria Qualified Code(s): N30.00 - Acute cystitis without hematuria Is this a current diagnosis for this admission?: Yes (9) Aortic stenosis Qualifiers: Cardiac valve disease etiology: etiology unspecified Qualified Code( s): I35.0 - Nonrheumatic aortic (valve) stenosis Is this a current diagnosis for this admission?: Yes (10) Hypothyroidism Qualifiers: Hypothyroidism type: unspecified Qualified Code(s): E03.9 - Hypothyroidism, unspecified Is this a current diagnosis for this admission?: Yes - Time Time Spent with patient: 35 or more minutes Medications reviewed and adjusted accordingly: Yes Anticipated discharge: Hospice
--- NOTE | 2017-02-15 19:06 | EKG REPORT ---
SEVERITY:- NORMAL ECG - SINUS RHYTHM : Confirmed by: Mely Reyna MD 15-Feb-2017 19:05:36
[2017-02-15] MEDS ORDERED: ZIPRASIDONE HCL 40 MG CAPSULE PO SCH (22:00)
[2017-02-15] MEDS ORDERED: ATORVASTATIN CALCIUM 20 MG TABLET PO SCH (22:00)
[2017-02-15] MEDS ORDERED: RANOLAZINE 500 MG TAB.SR.12H PO SCH (22:00)
[2017-02-15] MEDS ORDERED: ATORVASTATIN CALCIUM 80 MG TABLET PO SCH (22:00)
--- NOTE | 2017-02-15 22:39 | PDOC CONSULTATION ---
Consultation Consult Date: 02/15/17 Attending physician:: ANNA CALVILLO Consult reason:: Abnormal troponin I and hypotension History of Present Illness Admission Date/PCP: 02/15/17 05:20 SNEHA CADE MD Patient complains of: Patient unable to complain. Brought in belligerent and combative History of Present Illness: CARMELO CORONEL is a 76 year old female with an extensive past medical history including COPD, acute on chronic respiratory failure, bipolar with psychosis recurrent syncope and critical aortic stenosis. Patient was discharged from the hospital last week for COPD exacerbation, complicated by the above and referred for palliative care versus hospice with unclear determination. She is noted by assisted staff to be belligerent and combative refusing medications and treatment she's brought to the emergency room for evaluation where she's found to have positive cardiac enzymes, moderate hypercapnia with persistent delirium and aggressive behavior she receives sedation in the emergency room is referred to the hospitalist for admission. 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 Parental Family History Reviewed: No Children Family History Reviewed: No Sibling(s) Family History Reviewed.: No - This is not available and patient cannot provide this Medication/Allergy Home Medications: Acetaminophen [Tylenol 325 mg Tablet] 650 mg PO DAILYP PRN 02/15/17 Alprazolam [Xanax 0.25 mg Tablet] 0.25 mg PO Q8HP PRN 02/15/17 Amlodipine Besylate [Norvasc 10 mg Tablet] 10 mg PO DAILY 02/15/17 Aspirin [Ecotrin 81 mg EC Tablet] 81 mg PO DAILY 02/15/17 Brinzolamide [Azopt] 1 drop OU BID 02/15/17 Calcium Carbonate/Vitamin D3 [Calcium 600-Vit D3 800 Tab] 1 tab PO MEALS Carvedilol [Coreg 6.25 mg Tablet] 6.25 mg PO Q12 02/15/17 Cetirizine HCl [Zyrtec 10 mg Tablet] 10 mg PO DAILY 02/15/17 Citalopram Hydrobromide [Celexa 20 mg Tablet] 20 mg PO QHS 02/15/17 Fluticasone/Salmeterol [Advair 250-50 Diskus 14 Dose/Diskus] 1 puff IH BID 02/15 Furosemide [Lasix] 40 mg PO BID 02/15/17 Gabapentin [Neurontin 100 mg Capsule] 100 mg PO BID 02/15/17 Guaifenesin [Tussin] 10 ml PO Q4HP PRN 02/15/17 Levothyroxine Sodium [Synthroid] 50 mcg PO QAM 02/15/17 Lisinopril [Prinivil] 20 mg PO DAILY 02/15/17 Meclizine HCl [Antivert 25 mg Tablet] 25 mg PO TIDP PRN 02/15/17 Multivits-Min/Iron/FA/Lutein [Centrum Silver Women Tablet] 1 tab PO DAILY Quetiapine Fumarate [Seroquel 25 mg Tablet] 25 mg PO QHS 02/15/17 Umeclidinium [place] [Incruse Ellipta] 1 puff IH DAILY 02/15/17 Allergies/Adverse Reactions: formaldehyde [Formaldehyde] Allergy (Mild, Verified 09/17/13 12:41) Hives cephalexin monohydrate [From Keflex] Allergy (Unknown, Verified 09/17/13 12:41) Hives haloperidol [Haloperidol] Allergy (Unknown, Verified 09/17/13 12:41) stiff neck albuterol [Albuterol] Allergy (Verified 09/17/13 12:41) trembling betaxolol HCl [From Betoptic S] Allergy (Verified 09/17/13 12:41) interferred with copd meds chlorpromazine HCl [From Thorazine] Allergy (Verified 09/17/13 12:41) jittery indomethacin [From Indocin] Allergy (Verified 09/17/13 12:41) meperidine HCl [From Demerol] Allergy (Verified 09/17/13 12:41) morphine [Morphine] Allergy (Verified 09/17/13 12:41) prednisone [Prednisone] Allergy (Verified 09/17/13 12:41) quinine [Quinine] Allergy (Verified 09/17/13 12:41) stiff neck 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 hydrocarbons Allergy (Uncoded 09/17/13 12:41) intensifies her senses thistle Allergy (Uncoded 09/17/13 12:41) itching Review of Systems ROS unobtainable: Due to mental status - Patient unable to provide due to mental status and sedation. Physical Exam Vital Signs: Temp Pulse Resp BP Pulse Ox 98.1 F 71 19 124/51 L 97 02/15/17 15:41 02/15/17 15:41 02/15/17 15:41 02/15/17 15:41 02/15/17 15:41 Intake & Output 02/14/17 02/15/17 02/16/17 06:59 06:59 06:59 Intake Total 326 Output Total 100 Balance 226 Weight 62.9 kg Exam: GENERAL: well-nourished and in no acute distress. Patient is alert but not oriented to place time or person. HEAD: Atraumatic, normocephalic. EYES: Pupils equal round and reactive to light, extraocular movements intact, sclera anicteric, conjunctiva are normal. ENT: TMs normal, nares patent, oropharynx clear without exudates. Moist mucous membranes. No oral ulcerations or bleeding gums noted NECK: supple without lymphadenopathy or JVD. Trachea is central. No cervical or axillary lymphadenopathy noted. Carotids are 2+ LUNGS: Breath sounds bibasilar fine crackles at bases. No significant dullness noted. CHEST: Palpation of chest wall shows no significant chest wall tenderness. 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 ABDOMEN: Soft, no significant tenderness appreciated, normoactive bowel sounds. No guarding, no rebound. No rigidity noted . No masses appreciated. EXTREMITIES: Pedal pulses are 1-2+, no calf tenderness noted, Trace + pedal edema noted. No clubbing or cyanosis. NEUROLOGICAL: Patient is alert but is not able to participate in neurological exam because of patient's current mental status PSYCH: Patient cannot participate in a neurologic and psych exam because of the patient's current mental status SKIN: No significant ecchymosis, rash, ulcerations or signs of pruritus noted. MUSCULOSKELETAL EXAM: No significant joint swelling noted. Results Laboratory Results: 02/15/17 02/15/17 09:20 15:45 Troponin I 14.600 8.510 EKG Comments: 12-lead EKGs were reviewed. It showed minor nonspecific T-wave inversion, cannot rule out inferior infarct, age indeterminate. Impressions: Chest X-Ray 02/14/17 23:02 IMPRESSION: No acute radiographic finding in the chest. Assessment & Plan - Diagnosis (1) Non-STEMI (non-ST elevated myocardial infarction) Is this a current diagnosis for this admission?: Yes (2) Acute on chronic respiratory failure Qualifiers: Respiratory failure complication: hypoxia and hypercapnia Qualified Code(s): J96.21 - Acute and chronic respiratory failure with hypoxia Is this a current diagnosis for this admission?: Yes (3) COPD (chronic obstructive pulmonary disease) Qualifiers: COPD type: unspecified COPD Qualified Code(s): J44.9 - Chronic obstructive pulmonary disease, unspecified Is this a current diagnosis for this admission?: Yes (4) Aortic stenosis Qualifiers: Cardiac valve disease etiology: etiology unspecified Qualified Code( s): I35.0 - Nonrheumatic aortic (valve) stenosis Is this a current diagnosis for this admission?: Yes (5) COPD exacerbation Is this a current diagnosis for this admission?: Yes - Notes Notes: Non-STEMI: Patient has significant elevation of troponin I and cardiac enzymes but no significant EKG changes. Very likely that patient has sustained a non- STEMI, most likely subendocardial, due to presence of severe aortic stenosis. Patient is DO NOT RESUSCITATE, medical management is being recommended. Patient is being started on Arixtra, will switch carvedilol to Toprol-XL. Continue antiplatelet therapy, increase statin to highest tolerated dose. Overall prognosis is guarded. Acute on chronic respiratory failure: Elevation noted to be hypoxic, hypercapnic and respiratory failure. This can cause troponin I release but not to the extent noted. However need to be treated with noninvasive ventilation. COPD: Patient seems to have severe COPD. Continue aggressive management with bronchodilators still guards etc. Aortic stenosis: Patient has severe aortic stenosis. At this point, will follow patient's closely. Medical management is being offered. If situation changes, may consider transfer to tertiary care for definitive treatment with possible percutaneous placement of artificial aortic valve - Time Time Spent: 30 to 50 Minutes - CODE STATUS : was discussed, patient remains DO NOT RESUSCITATE. Surrogate decision-maker power of tube test technician. Multiple medical problems were addressed.More than 50% of the time spent coordinating care, discussing management plans with involved caregivers. Management plans discussed with involved personnels. Medical decision making was of moderate complexity. Medications reviewed and adjusted accordingly: Yes
[2017-02-16] MEDS: HYDROMORPHONE HCL INJ/PF 2 MG/ML AMPULE IV PRN ×2 (00:46→15:20)
[2017-02-16] MEDS: ATROPINE SULFATE 1% OPH SOLN 5 ML BOTTLE SL SCH ×4 (05:21→23:25)
[2017-02-16] MEDS ORDERED: LEVOTHYROXINE SODIUM 0.05 MG TABLET PO SCH (06:00)
--- NOTE | 2017-02-16 07:46 | PDOC PROGRESS REPORT ---
Subjective Progress Note for:: 02/16/17 Subjective:: Patient remains very obtunded and unresponsive to verbal stimuli. Patient however seems comfortable in no acute distress. Respirations are slow and somewhat shallow. I'm told by the nurse that patient is now a comfort care. Physical Exam Vital Signs: Temp Pulse Resp BP Pulse Ox 98.2 F 94 24 H 135/60 H 99 02/15/17 19:28 02/16/17 06:37 02/15/17 19:28 02/15/17 19:28 02/15/17 19:28 Intake & Output 02/15/17 02/16/17 02/17/17 06:59 06:59 06:59 Intake Total 1556 Output Total 800 Balance 756 Weight 63.4 kg Exam: GENERAL: well-nourished and in no acute distress. Patient is up standard and verbally nonresponsive. HEAD: Atraumatic, normocephalic. EYES: Pupils equal round and reactive to light, extraocular movements intact, sclera anicteric, conjunctiva are normal. ENT: TMs normal, nares patent, oropharynx clear without exudates. Moist mucous membranes. No oral ulcerations or bleeding gums noted NECK: supple without lymphadenopathy or JVD. Trachea is central. No cervical or axillary lymphadenopathy noted. Carotids are 2+ LUNGS: Breath sounds bibasilar fine crackles at bases. No significant dullness noted. CHEST: Palpation of chest wall shows no significant chest wall tenderness. 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 ABDOMEN: Soft, no significant tenderness appreciated, normoactive bowel sounds. No guarding, no rebound. No rigidity noted . No masses appreciated. EXTREMITIES: Pedal pulses are 1-2+, no calf tenderness noted, Trace + pedal edema noted. No clubbing or cyanosis. NEUROLOGICAL: Patient is alert but is not able to participate in neurological exam because of patient's current mental status PSYCH: Patient cannot participate in a neurologic and psych exam because of the patient's current mental status SKIN: No significant ecchymosis, rash, ulcerations or signs of pruritus noted. MUSCULOSKELETAL EXAM: No significant joint swelling noted. Results Laboratory Results: 02/15/17 02/15/17 09:20 15:45 Troponin I 14.600 8.510 Impressions: Chest X-Ray 02/14/17 23:02 IMPRESSION: No acute radiographic finding in the chest. Assessment & Plan - Diagnosis (1) Non-STEMI (non-ST elevated myocardial infarction) Is this a current diagnosis for this admission?: Yes (2) Acute on chronic respiratory failure Qualifiers: Respiratory failure complication: hypoxia and hypercapnia Qualified Code(s): J96.21 - Acute and chronic respiratory failure with hypoxia Is this a current diagnosis for this admission?: Yes (3) COPD (chronic obstructive pulmonary disease) Qualifiers: COPD type: unspecified COPD Qualified Code(s): J44.9 - Chronic obstructive pulmonary disease, unspecified Is this a current diagnosis for this admission?: Yes (4) Aortic stenosis Qualifiers: Cardiac valve disease etiology: etiology unspecified Qualified Code( s): I35.0 - Nonrheumatic aortic (valve) stenosis Is this a current diagnosis for this admission?: Yes (5) COPD exacerbation Is this a current diagnosis for this admission?: Yes - Notes Notes: Patient has now been made a comfort care. Agree with above decision. At this point will sign off. Please reconsult if needed. Plans as mentioned in yesterday's note could be continued as felt necessary. - Time Time with patient: Less than 15 minutes - CODE STATUS : was discussed, patient remains DO NOT RESUSCITATE. Surrogate decision-maker unchanged. Patient currently comfort care, will sign off..
[2017-02-16] MEDS: LORAZEPAM INJ 2 MG/1 ML VIAL IV PRN (08:23)
[2017-02-16 08:30] VITALS: BP 89/32
[2017-02-16] MEDS ORDERED: FONDAPARINUX SODIUM INJ 2.5 MG/0.5 ML DISP.SYRIN SUBCUT SCH (10:00)
[2017-02-16] MEDS ORDERED: METOPROLOL SUCCINATE 25 MG TAB.SR.24H PO SCH (10:00)
--- NOTE | 2017-02-16 13:58 | PDOC PROGRESS REPORT ---
Subjective Progress Note for:: 02/16/17 Subjective:: Present illness encephalopathic. No reported respiratory distress, temperature spikes, nausea or vomiting. Seems to be comfortable. Physical Exam Vital Signs: Temp Pulse Resp BP Pulse Ox 98.8 F 94 14 89/32 L 95 02/16/17 07:48 02/16/17 08:30 02/16/17 07:48 02/16/17 07:48 02/16/17 07:48 Intake & Output 02/15/17 02/16/17 02/17/17 06:59 06:59 06:59 Intake Total 1556 0 Output Total 800 50 Balance 756 -50 Weight 63.4 kg General appearance: PRESENT: no acute distress Head exam: PRESENT: normocephalic Mouth exam: PRESENT: neck supple Neck exam: ABSENT: JVD Respiratory exam: PRESENT: rhonchi - few, unlabored. ABSENT: wheezes Cardiovascular exam: PRESENT: RRR. ABSENT: gallop GI/Abdominal exam: PRESENT: soft. ABSENT: distended, tenderness Extremities exam: PRESENT: other - Trace lower extremity edema Neurological exam: PRESENT: other - Nonverbal and unresponsive Skin exam: PRESENT: dry, warm. ABSENT: cyanosis Results Laboratory Results: 02/15/17 02/15/17 09:20 15:45 Troponin I 14.600 8.510 Impressions: Chest X-Ray 02/14/17 23:02 IMPRESSION: No acute radiographic finding in the chest. Assessment & Plan - Diagnosis (1) Acute on chronic respiratory failure Qualifiers: Respiratory failure complication: hypoxia and hypercapnia Qualified Code(s): J96.21 - Acute and chronic respiratory failure with hypoxia Is this a current diagnosis for this admission?: Yes (2) Non-STEMI (non-ST elevated myocardial infarction) Is this a current diagnosis for this admission?: Yes (3) Urinary tract infection Qualifiers: Urinary tract infection type: acute cystitis Hematuria presence: without hematuria Qualified Code(s): N30.00 - Acute cystitis without hematuria Is this a current diagnosis for this admission?: Yes (4) COPD (chronic obstructive pulmonary disease) Qualifiers: COPD type: unspecified COPD Qualified Code(s): J44.9 - Chronic obstructive pulmonary disease, unspecified Is this a current diagnosis for this admission?: Yes (5) Aortic stenosis Qualifiers: Cardiac valve disease etiology: etiology unspecified Qualified Code( s): I35.0 - Nonrheumatic aortic (valve) stenosis Is this a current diagnosis for this admission?: Yes (6) Hypertension Qualifiers: Hypertension type: essential hypertension Qualified Code(s): I10 - Essential (primary) hypertension Is this a current diagnosis for this admission?: Yes (7) Hypothyroidism Qualifiers: Hypothyroidism type: unspecified Qualified Code(s): E03.9 - Hypothyroidism, unspecified Is this a current diagnosis for this admission?: Yes (8) Diabetes mellitus type 2 in nonobese Is this a current diagnosis for this admission?: Yes (9) Hyperlipidemia Qualifiers: Hyperlipidemia type: unspecified Qualified Code(s): E78.5 - Hyperlipidemia, unspecified Is this a current diagnosis for this admission?: Yes (10) Chronic congestive heart failure Qualifiers: Congestive heart failure type: diastolic Qualified Code(s): I50.32 - Chronic diastolic (congestive) heart failure Is this a current diagnosis for this admission?: Yes - Time Time Spent with patient: 25-34 minutes - Plan Summary Plan Summary: Patient is on comfort measure. We'll consult senior materials planner for inpatient hospice.
--- NOTE | 2017-02-17 16:30 | Death Summary ---
Summary Date : 02/17/17 Time of :: 01:13 Autopsy: No Resuscitation Status: Comfort Measures Only Primary Care Provider: Dr. Akins - Final Diagnosis (1) Acute on chronic respiratory failure Is this a current diagnosis for this admission?: Yes (2) Non-STEMI (non-ST elevated myocardial infarction) Is this a current diagnosis for this admission?: Yes (3) Urinary tract infection Is this a current diagnosis for this admission?: Yes (4) COPD (chronic obstructive pulmonary disease) Is this a current diagnosis for this admission?: Yes (5) Aortic stenosis Is this a current diagnosis for this admission?: Yes (6) Hypertension Is this a current diagnosis for this admission?: Yes (7) Hypothyroidism Is this a current diagnosis for this admission?: Yes (8) Diabetes mellitus type 2 in nonobese Is this a current diagnosis for this admission?: Yes (9) Hyperlipidemia Is this a current diagnosis for this admission?: Yes (10) Chronic congestive heart failure Is this a current diagnosis for this admission?: Yes Hospital Course:: The patient was admitted to [facility]. Patient was recently admitted and discharged from the hospital for COPD exacerbation and readmitted for change in mental status. Troponins were abnormal and was positive for myocardial infarction. The patient developed hypotension. She remains encephalopathic. She is not a candidate for surgery for critical aortic stenosis due to her long-standing pulmonary condition as reported with COPD and chronic hypoxemic respiratory failure. At this point the patient was discussed with the family made her a DO NOT RESUSCITATE and comfort measures only. Inpatient hospice was therefore consulted however before the patient was accepted she eventually . Family was aware. Cause of : Acute myocardial infarction, likely from underlying coronary artery disease. Significant contributing condition include critical aortic stenosis, chronic hypoxemic respiratory failure and COPD.
== END 2017-02-17 04:10 | disposition left against medical advice (07) ==
LOC: ER 21:34 → EH 02-15 05:20 → 3W 02-15 14:03
PROVIDERS: ADMIT Internal Medicine; ATTEND Internal Medicine
DX: I21.4 Non-ST elevation (NSTEMI) myocardial infarction (principal); J96.21 Acute and chronic respiratory failure with hypoxia; Z66 Do not resuscitate; N39.0 Urinary tract infection, site not specified; F31.89 Other bipolar disorder; J44.1 Chronic obstructive pulmonary disease with (acute) exacerbation; R65.10 Systemic inflammatory response syndrome (SIRS) of non-infectious origin without acute organ dysfunction; I50.32 Chronic diastolic (congestive) heart failure; E87.5 Hyperkalemia; I25.10 Atherosclerotic heart disease of native coronary artery without angina pectoris; I10 Essential (primary) hypertension; E03.9 Hypothyroidism, unspecified; E11.9 Type 2 diabetes mellitus without complications; I35.0 Nonrheumatic aortic (valve) stenosis; D75.82 Heparin induced thrombocytopenia (HIT); R41.82 Altered mental status, unspecified; R45.1 Restlessness and agitation; F22 Delusional disorders; F03.90 Unspecified dementia, unspecified severity, without behavioral disturbance, psychotic disturbance, mood disturbance, and anxiety; F17.210 Nicotine dependence, cigarettes, uncomplicated; Z88.1 Allergy status to other antibiotic agents; Z88.8 Allergy status to other drugs, medicaments and biological substances; Z88.5 Allergy status to narcotic agent
CPT/HCPCS: 36415; 71010; 80053; 80164; 81001; 82803; 83735; 83880; 84439; 84443; 84484; 85025; 87086; 87088; 87186; 93005; 93010; 94640; 96372; 99291; J1170; J1652; J2060; J3486; J3490; J7030